=== PATIENT | female | born 1945 | race Caucasian/White ===

== ENCOUNTER → 2016-09-04 | Outpatient (CLI) | payer MEDICARE ==
[2016-09-04 10:16] LABS: Ionized Calcium 5.8 mg/dL (4.5-5.3)
[2016-09-04 10:36] LABS: ALT 23 U/L (9-52); AST 21 U/L (14-36); Alkaline Phosphatase 47 U/L (38-126); Anion Gap 9 mmol/L; Blood Urea Nitrogen 14 mg/dL (7-17); Calcium 10.2 mg/dL (8.4-10.2); Carbon Dioxide 27 mmol/L (22-30); Chloride 104 mmol/L (98-107); Glucose 88 mg/dL (74-99); Non-African American GFR(MDRD) >60 (>60 ml/min/1.73 sqM); Potassium 4.7 mmol/L (3.5-5.1); Sodium 140 mmol/L (137-145); Total Bilirubin 0.5 mg/dL (0.2-1.3)
== END | disposition home or self-care (01) ==
LOC: LABWHC1 09:25
PROVIDERS: ATTEND Internal Medicine Endocrinology, Diabetes & Metabolism
DX: E21.0 Primary hyperparathyroidism (principal); E55.9 Vitamin D deficiency, unspecified; E89.0 Postprocedural hypothyroidism
CPT/HCPCS: 36415; 80053; 82306; 82330; 83970; 84439; 84443

== ENCOUNTER → 2017-08-07 | Outpatient (CLI) | payer MEDICARE ==
[2017-08-07 11:04] LABS: ALT 23 U/L (9-52); AST 23 U/L (14-36); Alkaline Phosphatase 49 U/L (38-126); Anion Gap 12 mmol/L; Blood Urea Nitrogen 14 mg/dL (7-17); Calcium 10.6 mg/dL (8.4-10.2); Carbon Dioxide 28 mmol/L (22-30); Chloride 103 mmol/L (98-107); Cholesterol 157 mg/dL (<200); Glucose 90 mg/dL (74-99); HDL Cholesterol 50 mg/dL (40-60); LDL Cholesterol,Calculated 90 mg/dL (0-99); Potassium 5.2 mmol/L (3.5-5.1); Sodium 143 mmol/L (137-145); Total Bilirubin 0.4 mg/dL (0.2-1.3); Total Protein 6.3 g/dL (6.3-8.2); Triglycerides 86 mg/dL (<150)
[2017-08-07 11:20] LABS: T4, Free (Free Thyroxine) 1.65 ng/dL (0.78-2.19)
== END | disposition home or self-care (01) ==
LOC: LABWHC1 09:47
PROVIDERS: ATTEND Internal Medicine Endocrinology, Diabetes & Metabolism
DX: E89.0 Postprocedural hypothyroidism (principal); E21.0 Primary hyperparathyroidism
CPT/HCPCS: 36415; 80053; 80061; 84439; 84443

== ENCOUNTER → 2017-10-08 | Outpatient (CLI) | payer MEDICARE ==
[2017-10-08 10:24] LABS: Anion Gap 8 mmol/L; Blood Urea Nitrogen 11 mg/dL (7-17); Calcium 10.3 mg/dL (8.4-10.2); Carbon Dioxide 28 mmol/L (22-30); Chloride 104 mmol/L (98-107); Glucose 92 mg/dL (74-99); Magnesium 1.9 mg/dL (1.6-2.3); Phosphorus 3.7 mg/dL (2.5-4.5); Potassium 5.1 mmol/L (3.5-5.1); Sodium 140 mmol/L (137-145)
[2017-10-08 10:41] LABS: T4, Free (Free Thyroxine) 1.48 ng/dL (0.78-2.19)
[2017-10-08 11:02] LABS: Ionized Calcium 5.6 mg/dL (4.5-5.3)
[2017-10-08 16:30] LABS: Vitamin D 25 Hydroxy 110.5 ng/mL (30.0-100.0)
[2017-10-08 17:05] LABS: Parathyroid Hormone Intact 85.3 pg/mL (14.0-72.0)
== END | disposition home or self-care (01) ==
LOC: LABWHC1 09:00
PROVIDERS: ATTEND Internal Medicine Endocrinology, Diabetes & Metabolism
DX: E78.5 Hyperlipidemia, unspecified (principal); E89.0 Postprocedural hypothyroidism; E55.9 Vitamin D deficiency, unspecified; E21.0 Primary hyperparathyroidism
CPT/HCPCS: 36415; 80048; 82306; 82330; 82523; 83735; 83970; 84100; 84439; 84443

== ENCOUNTER → 2017-11-06 | Outpatient (CLI) | payer MEDICARE ==
--- NOTE | 2017-11-06 09:02 | US ---
EXAMINATION TYPE: US abdomen complete DATE OF EXAM: 11/06/2017 COMPARISON: NONE CLINICAL HISTORY: R10.0 severe abdominal pain. abd pain after eating, h/o thyroid ca and breast ca x 2 EXAM MEASUREMENTS: Liver Length: 11.9 cm Gallbladder Wall: 0.2 cm CBD: 0.3 cm Spleen: 9.1 cm Right Kidney: 10.3 x 4.1 x 4.1 cm Left Kidney: 9.5 x 3.9 x 4.2 cm Pancreas: wnl Liver: multiple cysts seen, largest = 3.4cm Gallbladder: wnl Evidence for sonographic Keenan's sign: no CBD: wnl Spleen: wnl Right Kidney: wnl Left Kidney: wnl Upper IVC: wnl Abd Aorta: wnl incidental finding of right sided pleural effusion The liver is homogenous. There are few thin-walled cysts some of lobulation and thin septation on im ages saved throughout the liver. The intrahepatic portion of the IVC and proximal abdominal aorta are within normal limits. There is no evidence of cholelithiasis. Common bile duct is unremarkable. T he visualized portions of the pancreas are homogenous. The spleen is unremarkable. Kidneys are symm etric and free of hydronephrosis. No renal lesions are seen. IMPRESSION: Note is made of small to tiny right pleural effusion which may warrant further clinical w orkup. No suspicious finding seen to account for patient's symptoms of severe pain after eating.
== END | disposition home or self-care (01) ==
LOC: RADUSWWP 06:51
PROVIDERS: ATTEND Internal Medicine Geriatric Medicine
DX: R10.0 Acute abdomen (principal)
CPT/HCPCS: 76700

== ENCOUNTER → 2017-11-18 | Outpatient (CLI) | payer MEDICARE ==
--- NOTE | 2017-11-18 10:02 | XR ---
EXAMINATION TYPE: XR chest 2V DATE OF EXAM: 11/18/2017 COMPARISON: 01/01/2016 TECHNIQUE: PA and lateral views submitted. HISTORY: Shortness of breath FINDINGS: There is a small right-sided pleural effusion and basilar consolidation. Left lung clear. There is a 6 mm nodule left lower lobe. No pneumothorax. Arthropathy shoulders. IMPRESSION: 1. Small right pleural effusion and basilar consolidation. 2. 6 mm nodule left lower lobe.
== END | disposition home or self-care (01) ==
LOC: RADXRMAIN 09:41
PROVIDERS: ATTEND Internal Medicine
DX: J90 Pleural effusion, not elsewhere classified (principal); R91.8 Other nonspecific abnormal finding of lung field; J18.1 Lobar pneumonia, unspecified organism
CPT/HCPCS: 71046

== ENCOUNTER → 2017-12-14 | Outpatient (CLI) | payer MEDICARE ==
--- NOTE | 2017-12-14 11:33 | FL ---
ESOPHOGRAM. HISTORY: Dysphagia Esophagram was performed per the air contrast technique. The patient swallowed barium and effervesce nt crystals without difficulty or delay. Esophageal peristalsis and motility appear to be within normal limits. There is no evidence for filling defect, mass or diverticulum. No hiatal hernia seen. Examination was subsequently terminated given aspiration of thick liquid barium. Modified barium swal low is recommended. IMPRESSION: 1. Aspiration. Modified barium swallow recommended. 2. Visualized esophagus appears grossly unremarkable.
== END | disposition home or self-care (01) ==
LOC: RADFLWHC 10:25
PROVIDERS: ATTEND Internal Medicine Geriatric Medicine
DX: R13.10 Dysphagia, unspecified (principal)
CPT/HCPCS: 74220

== ENCOUNTER → 2017-12-29 | Outpatient (CLI) | payer MEDICARE ==
--- NOTE | 2017-12-29 12:14 | FL ---
EXAMINATION TYPE: FL barium swallow w video DATE OF EXAM: 12/29/2017 MODIFIED SWALLOW / DEGLUTITION STUDY CLINICAL HISTORY: Aspiration during esophagram, abnormal esophagram TECHNIQUE: Deglutition study is performed utilizing thin liquid barium, honey and nectar thick liqui d barium, barium thick applesauce, and barium coated cracker. A total of 1.32 minutes of fluoroscopic time was utilized during procedure. 0 spot images are saved to PACS. COMPARISON: Esophagram December 14, 2017. FINDINGS: The oral and pharyngeal phases show satisfactory initiation and propagation with all modali ties tested. Normal mastication is seen with solid modalities tested. There is no evidence of penet ration or aspiration with any modality tested. No significant pharyngeal residue was appreciated. IMPRESSION: No penetration or aspiration observed on today's study. Please refer to speech therapist notes for further details if necessary.
== END | disposition home or self-care (01) ==
LOC: RADFLMAIN 11:06
PROVIDERS: ATTEND Internal Medicine Geriatric Medicine
DX: R13.10 Dysphagia, unspecified (principal)
CPT/HCPCS: 74230

== ENCOUNTER → 2018-02-08 | Outpatient (CLI) | payer MEDICARE ==
--- NOTE | 2018-02-08 10:05 | XR ---
EXAMINATION TYPE: XR chest 2V DATE OF EXAM: 02/08/2018 COMPARISON: 11/18/2017 TECHNIQUE: PA and lateral views submitted. HISTORY: Pneumonia FINDINGS: Right-sided consolidation and pleural effusion stable. No pneumothorax. Heart size stable. Arthropath y of the shoulders. IMPRESSION: 1. Stable right-sided lower lobe infiltrate and small effusion.
[2018-02-08 12:08] LABS: ALT 29 U/L (9-52); AST 35 U/L (14-36); Albumin 3.6 g/dL (3.5-5.0); Alkaline Phosphatase 49 U/L (38-126); Anion Gap 5 mmol/L; Blood Urea Nitrogen 15 mg/dL (7-17); Calcium 10.3 mg/dL (8.4-10.2); Carbon Dioxide 27 mmol/L (22-30); Chloride 106 mmol/L (98-107); Cholesterol 148 mg/dL (<200); Glucose 87 mg/dL (74-99); HDL Cholesterol 47 mg/dL (40-60); LDL Cholesterol,Calculated 87 mg/dL (0-99); Sodium 138 mmol/L (137-145); Total Bilirubin 0.5 mg/dL (0.2-1.3); Total Protein 6.2 g/dL (6.3-8.2); Triglycerides 68 mg/dL (<150)
[2018-02-08 12:11] LABS: Basophils # (A) 0.1 k/uL (0-0.2); Basophils % (A) 1 %; Eosinophils # (A) 0.1 k/uL (0-0.7); Eosinophils % (A) 2 %; HCT 43.2 % (34.0-46.0); HGB 13.1 gm/dL (11.4-16.0); Lymphocytes # (A) 0.9 k/uL (1.0-4.8); Lymphocytes % (A) 22 %; MCH 28.7 pg (25.0-35.0); MCHC 30.2 g/dL (31.0-37.0); Mean Platelet Volume 6.7; Monocytes # (A) 0.2 k/uL (0-1.0); Monocytes % (A) 6 %; Neutrophils # (A) 2.9 k/uL (1.3-7.7); Neutrophils % (A) 67 %; Platelet Count 311 k/uL (150-450); RBC 4.55 m/uL (3.80-5.40); RDW 13.1 % (11.5-15.5); WBC 4.2 k/uL (3.8-10.6)
[2018-02-08 12:21] LABS: T4, Free (Free Thyroxine) 1.45 ng/dL (0.78-2.19)
== END | disposition home or self-care (01) ==
LOC: RADXRMAIN 09:36
PROVIDERS: ATTEND Internal Medicine Geriatric Medicine
DX: J90 Pleural effusion, not elsewhere classified (principal); R91.8 Other nonspecific abnormal finding of lung field; E78.00 Pure hypercholesterolemia, unspecified; E03.9 Hypothyroidism, unspecified; K21.9 Gastro-esophageal reflux disease without esophagitis; R73.09 Other abnormal glucose
CPT/HCPCS: 71046; 80053; 80061; 83036; 84439; 84443; 85025

== ENCOUNTER → 2018-02-23 | Outpatient (CLI) | payer MEDICARE ==
[2018-02-23 16:10] LABS: Blood Urea Nitrogen 13 mg/dL (7-17)
--- NOTE | 2018-02-24 09:13 | CT ---
EXAMINATION TYPE: CT chest w con DATE OF EXAM: 02/24/2018 COMPARISON: Chest x-ray February 08, 2018 HISTORY: c/o chest tightness, cough, pneumonia. hx of breast ca CT DLP: 164.6 mGycm. Automated Exposure Control for Dose Reduction was Utilized. TECHNIQUE: CT scan of the thorax is performed following with IV Contrast, patient injected with 100 mL of Isovue 300. FINDINGS: LUNGS: There is moderate-sized right pleural effusion or fluid collection that does not completely la lalo dependently with extension all the way to right lung apex. There is associated compressive atelec tasis in the right lung base with more ill-defined masslike consolidation centrally radiating from th e right hilum surrounding distal right mainstem bronchus and origin of right upper lobe bronchus. The re is right-sided volume loss with tracheal and mediastinal shift. There is hyperexpanded left lung with reticulation and fibrosis in the left lung base. There is trace left pleural effusion or focal thickening axial image 45 that does not completely layer dependently. There are 2 left lower lobe posterior nodule measuring 5 mm axial image 39 and 4 mm axial image 37. A few smaller micronodules are noted in the superior lingula axial image 28 measuring up to 3 mm in s ize. There is more suspicious spiculated 10 x 9 mm nodule lateral left upper lobe axial image 13 MEDIASTINUM: There are prominent but subcentimeter anterior superior mediastinal, prevascular, and pa ratracheal lymph nodes. There are borderline enlarged left hilar lymph nodes axial image 28 for refer ence measuring 13 x 9 mm. There is suspicious prevascular lymph node near origin of left pulmonary ar dwain measuring 18 x 12 mm axial image 22. There is borderline subcarinal lymph node measuring 19 x 10 mm axial image 26 Small to moderate-sized pericardial effusion is seen most prominent along inferior margin measuring up to 18 mm in thickness sagittal image 53. No cardiomegaly is identified OTHER: Right breast implant is noted. Lobulated low dense right hepatic lobe 2.4 cm lesion axial imag e 56 likely corresponds to lobulated and septated cyst on ultrasound November 06, 2017. Mild to moderate multilevel spurring in the thoracic spine is seen. IMPRESSION: There are concerning findings in which neoplasm needs to BE excluded. Moderate size nonsi mple right pleural fluid collection is noted. There is suspicious masslike consolidation in the right hilar region surrounding bronchi. There are borderline enlarged thoracic lymph nodes and nonspecific left lung nodules. Consider PET/CT evaluation. Consider imaging guided right-sided thoracentesis for diagnostic purposes. Recurrent metastatic neoplasm needs to be excluded given patient history of jaymie ast cancer. Cannot exclude persistent acute pneumonia on background treatment change. Correlate clini merna.
== END | disposition home or self-care (01) ==
LOC: RADCTMAIN 15:19
PROVIDERS: ATTEND Internal Medicine Hematology & Oncology
DX: J94.8 Other specified pleural conditions (principal); R59.0 Localized enlarged lymph nodes; R91.8 Other nonspecific abnormal finding of lung field; C50.111 Malignant neoplasm of central portion of right female breast
CPT/HCPCS: 82565; 84520; 71260; 36415; Q9967

== ENCOUNTER → 2018-03-13 | Outpatient (CLI) | payer MEDICARE ==
--- NOTE | 2018-03-13 17:30 | PE ---
EXAMINATION TYPE: PET CT fusion skull to thigh DATE OF EXAM: 03/13/2018 COMPARISON: Chest CT February 23, 2018 HISTORY: History of breast cancer treated with bilateral mastectomy 2000 with chemotherapy ended 2007 per patient. Recent abnormal CT. TECHNIQUE: Following the intravenous administration of 12.578 mCi of F-18 FDG, whole body images are performed from the skull base to the midthigh. Images are reviewed on the computer in the coronal, axial, and sagittal planes. Reconstructed rotating images are created on independent workstation and reviewed on the computer. A noncontrast CT is performed in conjunction with the PET scan. SCAN: Subsequent Scan FINDINGS: SKULL BASE AND NECK: There are abnormal hypermetabolic left subcentimeter supraclavicular lymph node s seen near axial image 47. For reference lymph node adjacent to small size left thyroid lobe measure s 8 x 7 mm axial image 47 with max SUV of 3.41. CHEST, MEDIASTINUM, AND HILAR REGION: There is persistent 7 mm spiculated nodule or nodular consolida tion left upper lobe axial image 57 without abnormal hypermetabolic uptake. There is stable 5 mm subp leural nodule left lower lobe axial image 83 without abnormal hypermetabolic uptake. There is moderate to large size right pleural effusion increased in size from recent CT. There is ret iculonodular consolidation in the mid to right lower lung most prominent near fusion where there is s ome hypermetabolic uptake, max SUV is 6.03 axial image 91 where there is slightly more rounded nodula r consolidation seen. There is additional left basilar atelectasis and/or Limited consolidation. There are high medial left axillary hypermetabolic lymph nodes axial image 58 with max SUV 4.75, more lateral lymph node measures 1.3 x 0.9 cm. There is close proximity to subclavian vessels. There are enlarged anterior superior mediastinal hypermetabolic lymph nodes, there are additional hyp ermetabolic bilateral hilar and mediastinal lymph nodes. Max SUV left hilar region is 7.1. Max SUV fofana bcarinal level is 7.44. ABDOMEN AND PELVIS: No suspicious hypermetabolic uptake is present. Diffuse uptake throughout bowel a nd bladder is present. OSSEOUS STRUCTURES: No suspicious hypermetabolic uptake is clearly seen. Focal increased uptake poste rior L4-L5 level axial image 162 is of uncertain etiology without corresponding CT abnormality clearl y identified. OTHER CT: Right breast implant is redemonstrated. Surgical clips right axillary region are again seen. There is small pericardial effusion inferiorly redemonstrated. Coronary artery calcification is seen which is noted marked for coronary artery disease. Lobulated otherwise thin-walled simple cyst right hepatic lobe axial image 121 is redemonstrated. Sma ller cyst inferiorly axial image 149 is noted. Scattered pelvic phleboliths are seen. There is multilevel spurring in the spine identified. There is multilevel disc space narrowing in the lumbar spine seen. Multilevel facet arthropathy in the lumbar spine is noted. IMPRESSION: Suspicious thoracic and left-sided supraclavicular adenopathy worrisome for neoplasm. Con senior ui developer bronchoscopy for tissue sampling.
== END | disposition home or self-care (01) ==
LOC: RADPETMAIN 14:10
PROVIDERS: ATTEND Internal Medicine Hematology & Oncology
DX: C50.111 Malignant neoplasm of central portion of right female breast (principal)
CPT/HCPCS: 78815; A9552

== ENCOUNTER 2018-03-26 12:02 | Day surgery (SDC) | payer MEDICARE ==
[~2018-03-26 12:02] MED LIST: ALPRAZolam 0.25 MG TAB PO ONE
[2018-03-26 12:29] VITALS: TEMP 97.9
[2018-03-26 14:30] VITALS: BP 119/85; PULSE 87; RESP 16
--- NOTE | 2018-03-26 14:41 | US ---
ULTRASOUND GUIDED CORE BIOPSY LEFT NECK LYMPH NODE SUPRACLAVICULAR REGION: CLINICAL HISTORY: Abnormal PET scan FINDINGS: The procedure was explained to the patient. The risks, complications, benefits and alternatives were discussed and any questions were answered. Informed consent was obtained. Patient was placed supin e on the ultrasound table and prepped and draped in the usual sterile fashion. Utilizing a 18-gauge core biopsy needle, five passes were made into the left supraclavicular lymph node. Patient was stable throughout the procedure. Pathology is pending. All elements of maximal barrier and sterile technique were utilized. IMPRESSION: 1. Successful ultrasound guided core biopsy left clavicular lymph node.
== END 2018-03-26 13:50 | disposition home or self-care (01) ==
LOC: RADPROMAIN 12:02
PROVIDERS: ATTEND Internal Medicine Hematology & Oncology
DX: C77.0 Secondary and unspecified malignant neoplasm of lymph nodes of head, face and neck (principal); Z85.3 Personal history of malignant neoplasm of breast; Z85.828 Personal history of other malignant neoplasm of skin
CPT/HCPCS: 38505; 76942; 88305; 88341; 88342

== ENCOUNTER → 2018-04-15 | Outpatient (CLI) | payer MEDICARE ==
--- NOTE | 2018-04-15 20:17 | ECHOF ---
Referral Reason:Z01.818 PRE-CHEMO MEASUREMENTS -------- HEIGHT: 157.5 cm WEIGHT: 53.5 kg BP: 130/76 IVSd: 0.9 cm (0.6 - 1.1) LVIDd: 3.9 cm (3.9 - 5.3) LVPWd: 0.9 cm (0.6 - 1.1) IVSs: 1.2 cm LVIDs: 1.9 cm LVPWs: 1.5 cm LAESV Index (A-L): 18.87 ml/m Ao Diam: 2.1 cm (2.0 - 3.7) AV Cusp: 1.5 cm (1.5 - 2.6) LA Diam: 3.2 cm (2.7 - 3.8) MV EXCURSION: 12.755 mm (> 18.000) MV EF SLOPE: 76 mm/s (70 - 150) EPSS: 0.1 cm MV E Viral: 0.74 m/s MV DecT: 210 ms MV A Viral: 0.87 m/s MV E/A Ratio: 0.85 RAP: 5.00 mmHg RVSP: 46.04 mmHg FINDINGS -------- Sinus rhythm. This was a technically good study. The left ventricular size is normal. Left ventricular wall thickness is normal. Overall left vent ricular systolic function is normal with, an EF between 55 - 60 %. The right ventricle is normal in size and function. The left atrium is normal in size. The right atrium is normal in size. The aortic valve is trileaflet and appears structurally normal. The mitral valve leaflets are mildly thickened. Mild mitral annular calcification present. Mild m itral regurgitation is present. Severe tricuspid regurgitation present. There is mild to moderate pulmonary hypertension. The rig ht ventricular systolic pressure, as measured by Doppler, is 46.04mmHg. Pulmonic valve appears structurally normal. The aortic root size is normal. Normal inferior vena cava with normal inspiratory collapse consistent with estimated right atrial pre ssure of 5 mmHg. There is a moderate pericardial effusion is located near the right ventricle. Large Pleural Effusio n. CONCLUSIONS -------- 1. Sinus rhythm. 2. This was a technically good study. 3. The left ventricular size is normal. 4. Left ventricular wall thickness is normal. 5. Overall left ventricular systolic function is normal with, an EF between 55 - 60 %. 6. The right ventricle is normal in size and function. 7. The left atrium is normal in size. 8. The right atrium is normal in size. 9. The aortic valve is trileaflet and appears structurally normal. 10. The mitral valve leaflets are mildly thickened. 11. Mild mitral annular calcification present. 12. Mild mitral regurgitation is present. 13. Severe tricuspid regurgitation present. 14. There is mild to moderate pulmonary hypertension. 15. The right ventricular systolic pressure, as measured by Doppler, is 46.04mmHg. 16. Pulmonic valve appears structurally normal. 17. The aortic root size is normal. 18. Normal inferior vena cava with normal inspiratory collapse consistent with estimated right atrial pressure of 5 mmHg. 19. There is a moderate pericardial effusion is located near the right ventricle. 20. Large Pleural Effusion. TUBE MACHINE OPERATOR: Fauzia Arroyo RDCS
== END | disposition home or self-care (01) ==
LOC: RADECHMAIN 10:28
PROVIDERS: ATTEND Internal Medicine Hematology & Oncology
DX: Z01.818 Encounter for other preprocedural examination (principal); I08.1 Rheumatic disorders of both mitral and tricuspid valves; I27.20 Pulmonary hypertension, unspecified; I31.3 Pericardial effusion (noninflammatory); J90 Pleural effusion, not elsewhere classified
CPT/HCPCS: 93306

== ENCOUNTER 2018-04-26 12:18 | Day surgery (SDC) | payer MEDICARE ==
[2018-04-21 15:46] VITALS: BMI 21.5
[~2018-04-26 12:18] MED LIST changes: -ALPRAZolam 0.25 MG TAB PO ONE; +LACTATED RINGERS 1,000 ML IV SCH; +LIDOCAINE 1% 20 ML VIAL (10MG/ML) FOR IV START INTRADERMA PRN; +MIDAZOLAM (PF) 2 MG/2 ML VIAL IV PRN; +Pre Op ABX Message 1 EACH MISC MISCELLANE ONE; +fentaNYL (PF) 50 MCG/ML 2 ML AMP IV PRN
[2018-04-26 12:51] VITALS: RESP 16; TEMP 97.4
[2018-04-26] MEDS ORDERED: ceFAZolin IN SWFI 2 GM/20 ML SYRINGE IVP STA (13:39)
[2018-04-26] MEDS ORDERED: HEPARIN SODIUM,PORCINE 5,000 UNIT/ML 1 ML VIAL SQ ONE (13:41)
[2018-04-26] MEDS ORDERED: HEPARIN SODIUM,PORCINE 5,000 UNIT/ML 1 ML VIAL SQ STA (13:47)
--- NOTE | 2018-04-26 13:51 | P.GSHP ---
History of Present Illness H&P Date: 04/26/18 Chief Complaint: Recurrent breast cancer Patient today for Port-A-Cath placement. Patient had a recent diagnosis of recurrent breast cancer. She is starting chemotherapy dose on . She had a previous port on the left side in the past. Past Medical History Past Medical History: Cancer, Eye Disorder, GERD/Reflux, Pneumonia, Respiratory Disorder, Skin Disorder, Thyroid Disorder Additional Past Medical History / Comment(s): Hx of UTI's, psoriasis, hx thyroid nodules, hx Skin Cancer & Jame Breast Cancer (2000 left breast , 2007 right breast) with chemo. glaucoma., hx of h-pylori infection, Pneumonia November 2017., States SOB., states Chemo scheduled for 04/23/[address] Key. History of Any Multi-Drug Resistant Organisms: None Reported Past Surgical History: Breast Surgery, Hernia Repair, Joint Replacement, Tonsillectomy Additional Past Surgical History / Comment(s): partial thyroidectomy, jame mastectomy, rt breast implant, left breast reconstuction(trans flap), breast biopsies, cataract, skin cancer removed from left leg, jame eye laser surgery, fluid drained from right lung., right knee replacement, cervical node bx., Hx of infusa port and removal . Past Anesthesia/Blood Transfusion Reactions: Previous Problems w/ Anesthesia, Motion Sickness Additional Past Anesthesia/Blood Transfusion Reaction / Comment(s): Patient states cracked tooth and broken bridge with EGD (states they placed a "puck " in her mouth prior to procedure., States tooth very fragile. Past Psychological History: Anxiety Smoking Status: Never smoker Past Alcohol Use History: None Reported Past Drug Use History: None Reported - Past Family History Mother History Unknown: Yes Family Medical History: Coronary Artery Disease (CAD) Medications and Allergies Home Medications Medication Instructions Recorded Confirmed Type ALPRAZolam [Xanax XR] 0.5 mg PO BID PRN 01/03/16 04/26/18 History Ascorbic Acid [Vitamin C] 250 mg PO DAILY 01/03/16 04/26/18 History Brimonidine Tartrate [Alphagan P 1 drops BOTH EYES BID 01/03/16 04/26/18 History 0.15% Ophth Soln] Cholecalciferol [Vitamin D3] 5,000 unit PO DAILY 01/03/16 04/26/18 History Cyanocobalamin [Vitamin B-12] 1,000 mcg PO DAILY 01/03/16 04/26/18 History Levothyroxine Sodium [Synthroid] 75 mcg PO [id number] 01/03/16 04/21/18 History Multivitamins, Thera [Multivitamin 1 tab PO DAILY 01/03/16 04/21/18 History (formulary)] Simvastatin [Zocor] 10 mg PO HS 01/03/16 04/26/18 History Timolol 0.5% Ophth Soln [Timoptic 1 drop BOTH EYES BID 01/03/16 04/26/18 History 0.5% Ophth Soln] [id number] 1 each PO Q6HR PRN 03/24/18 04/21/18 History [Excedrin] Omeprazole [PriLOSEC] 20 mg PO [id number] 04/21/18 04/26/18 History Sennosides [Senna] 8.6 mg PO HS 04/21/18 04/26/18 History Allergies Allergy/AdvReac Type Severity Reaction Status Date / Time hydrocodone bitartrate Allergy Nausea,abdominal Verified 04/26/18 12:36 [From Vicodin] pain walnut Allergy CANKER Verified 04/26/18 12:36 SORES Surgical - Exam Vital Signs Temp Pulse Resp BP Pulse Ox 97.4 F L 81 16 140/78 95 04/26/18 12:37 04/26/18 12:37 04/26/18 12:37 04/26/18 12:37 04/26/18 12:37 Physical exam: General: Well-developed, well-nourished HEENT: Normocephalic, sclerae nonicteric Abdomen: Nontender, nondistended Extremities: No edema Neuro: Alert and oriented Assessment and Plan (1) Cancer of left breast Narrative/Plan: Will proceed with Port-A-Cath placement at this time. Risks of bleeding, infection, DVT, pneumothorax, catheter malfunction, anesthesia related complications were discussed. The patient understands and wishes to proceed. Current Visit: Yes Status: Acute Code(s): C50.912 - MALIGNANT NEOPLASM OF UNSPECIFIED SITE OF LEFT FEMALE BREAST SNOMED Code(s): 159445209
[2018-04-26] MEDS ORDERED: PROPOFOL 10 MG/ML 20 ML VIAL IV ONE (14:09)
[2018-04-26] MEDS ORDERED: fentaNYL (PF) 50 MCG/ML 2 ML AMP ONE (14:09)
[2018-04-26] MEDS ORDERED: MIDAZOLAM 2 MG/2 ML VIAL ONE (14:09)
[2018-04-26] MEDS ORDERED: ePHEDrine SULFATE/0.9% NACL/PF 50 MG/5 ML SYRINGE IV ONE (14:09)
[2018-04-26] MEDS ORDERED: LIDOCAINE (PF) 10 MG/ML 2 ML VIAL SQ ONE ×2 (14:10)
[2018-04-26] MEDS ORDERED: HEPARIN SODIUM,PORCINE 100 UNIT/ML 5 ML VIAL IV ONE ×2 (14:10)
[2018-04-26] MEDS ORDERED: NALOXONE 0.4 MG/ML 1 ML VIAL IV PRN (15:00)
--- NOTE | 2018-04-26 15:01 | P.OP ---
Date of Procedure: 04/26/18 Procedure(s) Performed: PREOPERATIVE DIAGNOSIS: Recurrent breast cancer POSTOPERATIVE DIAGNOSIS: Same PROCEDURE: Port-A-Cath placement SURGEON: Luis Antonio EBL: Minimal ANESTHESIA: Sedation COMPLICATIONS: None OPERATIVE PROCEDURE: Patient was brought and placed on the operative table in the supine position. The patient was sedated per anesthesia that time. The chest and neck were prepped and draped in usual sterile fashion. The ultrasound probe was used to identify the location of the right internal jugular vein. The skin was localized with lidocaine. The Seldinger needle was advanced into the IJ under ultrasound guidance. The wire was advanced through the needle under fluoroscopic guidance into the superior vena cava. A port pocket was created in the right infraclavicular location. The catheter was tunneled from the wire entrance site to the port pocket. The port was then connected to the catheter. The dilator introducer was threaded over the guidewire. The guidewire and dilator were then removed. The catheter was advanced through the introducer and introducer was then removed. The tip was seen to be in the right atrial junction. Port was flushed with both saline and a Hep-Lock solution. There was good flow both in and out of the port. The port was sutured in underlying tissues using 3-0 silk sutures. The subcutaneous tissues were reapproximated using 3-0 Vicryl sutures and the skin at both locations using 4-0 Monocryl sutures. Skin glue and sterile dressings then applied. DISPOSITION: Stable to recovery room
--- NOTE | 2018-04-26 15:41 | FL ---
Fluoroscopy HISTORY: Port-A-Cath insertion 6 seconds fluoroscopy time supplied to the referring clinician. 1 intraoperative C-arm images docume nt the procedure. See dictated report from general surgery.
--- NOTE | 2018-04-26 15:50 | XR ---
EXAMINATION TYPE: XR chest 1V confirm line [facility] DATE OF EXAM: 04/26/2018 COMPARISON: Prior chest x-ray 02/08/2018 HISTORY: Port-A-Cath insertion TECHNIQUE: Single frontal view of the chest is obtained. FINDINGS: Right-sided Port-A-Cath has been placed in the interval, right internal jugular vein appro ach the distal tip overlying the cavoatrial junction. No evident pneumothorax. There is blunting of t he right costophrenic angle, perihilar increased density and increased density along the right latera l chest margin. Patchy bibasilar density noted. IMPRESSION: No evident complication status post central venous catheter placement.
[2018-04-26 16:46] VITALS: BP 114/66; PULSE 70
== END 2018-04-26 16:45 | disposition home or self-care (01) ==
LOC: OR 12:18
PROVIDERS: ATTEND Surgery
DX: C50.111 Malignant neoplasm of central portion of right female breast (principal); C50.912 Malignant neoplasm of unspecified site of left female breast; C77.0 Secondary and unspecified malignant neoplasm of lymph nodes of head, face and neck; Z17.0 Estrogen receptor positive status [ER+]; Z92.21 Personal history of antineoplastic chemotherapy; Z85.3 Personal history of malignant neoplasm of breast; Z85.828 Personal history of other malignant neoplasm of skin; Z90.13 Acquired absence of bilateral breasts and nipples; Z98.82 Breast implant status; J90 Pleural effusion, not elsewhere classified; F41.1 Generalized anxiety disorder; M25.50 Pain in unspecified joint; E21.3 Hyperparathyroidism, unspecified; E89.0 Postprocedural hypothyroidism; L40.9 Psoriasis, unspecified; H40.9 Unspecified glaucoma; E78.5 Hyperlipidemia, unspecified; K21.9 Gastro-esophageal reflux disease without esophagitis; Z79.890 Hormone replacement therapy; Z79.899 Other long term (current) drug therapy; Z96.651 Presence of right artificial knee joint; Z87.01 Personal history of pneumonia (recurrent); Z87.440 Personal history of urinary (tract) infections; Z88.5 Allergy status to narcotic agent; Z91.018 Allergy to other foods
CPT/HCPCS: 77001; 36561; C1788; J2250; J2001; J1644; J1642; J3010; J2704; J0690

== ENCOUNTER 2018-05-19 10:48 | Inpatient (IN) | payer MEDICARE ==
--- NOTE | 2018-05-19 10:14 | XR ---
EXAMINATION TYPE: XR chest 2V DATE OF EXAM: 05/19/2018 COMPARISON: 04/26/2018 HISTORY: 72-year-old female history of breast cancer and pleural effusion TECHNIQUE: Frontal and lateral views FINDINGS: Right anterior chest wall injection port catheter tip at the lower SVC. Heart upper limits of normal in size. Diffuse interstitial opacities with consolidation left mid and lower lung and right base. Th ere is some fluid thickening the minor fissure and there is a small right pleural effusion. IMPRESSION: 1. Diffuse interstitial densities and patchy airspace disease in the mid and lower lungs, left greate r than right. Correlate for possible pulmonary edema. 2. Small right pleural effusion with adjacent atelectasis and/or consolidation. 3. As compared to 04/26/2018, airspace disease on the left is increased but the right-sided pleural eff usion has slightly decreased.
[2018-05-19] MEDS ORDERED: VANCOMYCIN IV PER PHARMACY 1 EACH MISC MISCELLANE PRN (11:15)
[2018-05-19] MEDS ORDERED: IPRATROPIUM-ALBUTEROL 3 ML NEB INHALATION STA (11:16)
[2018-05-19] MEDS ORDERED: CEFEPIME 2 GM in SODIUM CHLORIDE 0.9% 50 ML IVPB STA (11:17)
[2018-05-19] MEDS ORDERED: AZITHROMYCIN 500 MG in SODIUM CHLORIDE 0.9% 250 ML IVPB STA (11:20)
--- NOTE | 2018-05-19 11:44 | ED ---
General Adult HPI - General Chief complaint: Shortness of Breath Stated complaint: poss pneumonia Time Seen by Provider: 05/19/18 11:02 Source: patient, RN notes reviewed, old records reviewed Mode of arrival: wheelchair Limitations: no limitations - History of Present Illness Initial comments: 72-year-old female with metastatic breast cancer to the lung presenting with worsening cough and dyspnea. Patient's cough and dyspnea has been progressive over the past 4-5 days. Cough is productive of white sputum. Denies fever or chills. Most recent chemotherapy was one week ago. Denies pain or swelling in the lower extremities. Denies significant chest pain. Patient received an outpatient x-ray ordered by her oncologist, concern for fluid overload and infiltrate. - Related Data Home Medications Medication Instructions Recorded Confirmed Simvastatin [Zocor] 10 mg PO HS 01/03/16 05/19/18 Timolol 0.5% Ophth Soln [Timoptic 1 drop BOTH EYES BID 01/03/16 05/19/18 0.5% Ophth Soln] Omeprazole [PriLOSEC] 20 mg PO AC-BRKFST 04/21/18 05/19/18 ALPRAZolam [Xanax] 0.5 mg PO BID PRN 05/19/18 05/19/18 LORazepam [Ativan] 0.5 mg PO TID 05/19/18 05/19/18 Megestrol [Megace] 800 mg PO DAILY 05/19/18 05/19/18 Allergies Allergy/AdvReac Type Severity Reaction Status Date / Time hydrocodone bitartrate Allergy Nausea,abdominal Verified 05/19/18 11:48 [From Vicodin] pain walnut Allergy CANKER Verified 05/19/18 11:48 SORES Review of Systems ROS Statement: Those systems with pertinent positive or pertinent negative responses have been documented in the HPI. ROS Other: All systems not noted in ROS Statement are negative. Past Medical History Past Medical History: Cancer, Eye Disorder, GERD/Reflux, Pneumonia, Respiratory Disorder, Skin Disorder, Thyroid Disorder Additional Past Medical History / Comment(s): Hx of UTI's, psoriasis, hx thyroid nodules, hx Skin Cancer & Jame Breast Cancer (2000 left breast , 2007 right breast) with chemo. glaucoma., hx of h-pylori infection, Pneumonia November 2017., States SOB., states Chemo scheduled for 04/23/[address] Key. History of Any Multi-Drug Resistant Organisms: None Reported Past Surgical History: Breast Surgery, Hernia Repair, Joint Replacement, Tonsillectomy Additional Past Surgical History / Comment(s): partial thyroidectomy, jaem mastectomy, rt breast implant, left breast reconstuction(trans flap), breast biopsies, cataract, skin cancer removed from left leg, jame eye laser surgery, fluid drained from right lung., right knee replacement, cervical node bx., Hx of infusa port and removal . Past Anesthesia/Blood Transfusion Reactions: Previous Problems w/ Anesthesia, Motion Sickness Additional Past Anesthesia/Blood Transfusion Reaction / Comment(s): Patient states cracked tooth and broken bridge with EGD (states they placed a "puck " in her mouth prior to procedure., States tooth very fragile. Past Psychological History: Anxiety Smoking Status: Never smoker Past Alcohol Use History: None Reported Past Drug Use History: None Reported - Past Family History Mother History Unknown: Yes Family Medical History: Coronary Artery Disease (CAD) General Exam Limitations: no limitations General appearance: alert, in no apparent distress Head exam: Present: atraumatic, normocephalic Eye exam: Present: normal appearance, PERRL, EOMI ENT exam: Present: normal exam Neck exam: Present: normal inspection. Absent: tenderness, meningismus Respiratory exam: Present: respiratory distress (Mild respiratory distress), wheezes, rales (Rales predominantly left lung field) Cardiovascular Exam: Present: regular rate, normal rhythm GI/Abdominal exam: Present: soft. Absent: distended, tenderness, guarding Extremities exam: Present: normal inspection, normal capillary refill. Absent: pedal edema Neurological exam: Present: alert, oriented X3, CN II-XII intact. Absent: motor sensory deficit Psychiatric exam: Present: normal affect, normal mood Skin exam: Present: warm, dry, intact. Absent: cyanosis, diaphoretic Course Vital Signs 05/19/18 05/19/18 05/19/18 10:59 11:37 11:53 Temperature 97.9 F Pulse Rate 98 92 Respiratory 20 20 20 Rate Blood Pressure 117/78 O2 Sat by Pulse 88 L Oximetry 05/19/18 12:04 Temperature Pulse Rate 96 Respiratory 20 Rate Blood Pressure O2 Sat by Pulse Oximetry EKG Findings - EKG Comments: EKG Findings:: EKG: Normal sinus rhythm, rate of 97, ME interval 128, castration 84, QTC [address] segment changes Medical Decision Making - Medical Decision Making 72-year-old female with metastatic breast cancer on chemotherapy presenting with worsening cough and dyspnea. Palpation x-ray reviewed, there is reported concern for vascular congestion, this is predominantly in the left lung field with concern for infiltrate. Patient does have a normal white blood cell count , stable hemoglobin, normal CMP, troponin and BNP are negative. Influenza negative. She is started on antibiotics to cover healthcare associated pneumonia. Case is discussed with Dr. Mario, we will admit. - Lab Data Result diagrams: 05/19/18 11:43 05/19/18 11:43 Lab Results 05/19/18 05/19/18 05/19/18 Range/Units 11:25 11:43 11:43 WBC 7.8 (3.8-10.6) k/uL RBC 4.06 (3.80-5.40) m/uL Hgb 12.2 (11.4-16.0) gm/dL Hct 38.0 (34.0-46.0) % MCV 93.4 (80.0-100.0) fL MCH 30.0 (25.0-35.0) pg MCHC 32.1 (31.0-37.0) g/dL RDW 13.6 (11.5-15.5) % Plt Count 635 H (150-450) k/uL Neutrophils % 88 % Lymphocytes % 6 % Monocytes % 4 % Eosinophils % 1 % Basophils % 0 % Neutrophils # 6.9 (1.3-7.7) k/uL Lymphocytes # 0.5 L (1.0-4.8) k/uL Monocytes # 0.3 (0-1.0) k/uL Eosinophils # 0.1 (0-0.7) k/uL Basophils # 0.0 (0-0.2) k/uL PT (9.0-12.0) sec INR (<1.2) APTT (22.0-30.0) sec Sodium (137-145) mmol/L Potassium (3.5-5.1) mmol/L Chloride (98-107) mmol/L Carbon Dioxide (22-30) mmol/L Anion Gap mmol/L BUN (7-17) mg/dL Creatinine (0.52-1.04) mg/dL Est GFR (CKD-EPI)AfAm (>60 ml/min/1.73 sqM) Est GFR (CKD-EPI)NonAf (>60 ml/min/1.73 sqM) Glucose (74-99) mg/dL Plasma Lactic Acid Emeterio (0.7-2.0) mmol/L Calcium (8.4-10.2) mg/dL Magnesium (1.6-2.3) mg/dL Total Bilirubin (0.2-1.3) mg/dL AST (14-36) U/L ALT (9-52) U/L Alkaline Phosphatase (38-126) U/L Total Creatine Kinase <20 L (30-135) U/L CK-MB (CK-2) 0.6 (0.0-2.4) ng/mL CK-MB (CK-2) Rel Index Troponin I <0.012 (0.000-0.034) ng/mL NT-Pro-B Natriuret Pep pg/mL Total Protein (6.3-8.2) g/dL Albumin (3.5-5.0) g/dL Influenza Type A RNA Not Detected (Not Detectd) Influenza Type B (PCR) Not Detected (Not Detectd) 05/19/18 05/19/18 05/19/18 Range/Units 11:43 11:43 11:43 WBC (3.8-10.6) k/uL RBC (3.80-5.40) m/uL Hgb (11.4-16.0) gm/dL Hct (34.0-46.0) % MCV (80.0-100.0) fL MCH (25.0-35.0) pg MCHC (31.0-37.0) g/dL RDW (11.5-15.5) % Plt Count (150-450) k/uL Neutrophils % % Lymphocytes % % Monocytes % % Eosinophils % % Basophils % % Neutrophils # (1.3-7.7) k/uL Lymphocytes # (1.0-4.8) k/uL Monocytes # (0-1.0) k/uL Eosinophils # (0-0.7) k/uL Basophils # (0-0.2) k/uL PT (9.0-12.0) sec INR (<1.2) APTT (22.0-30.0) sec Sodium 131 L (137-145) mmol/L Potassium 4.2 (3.5-5.1) mmol/L Chloride 99 (98-107) mmol/L Carbon Dioxide 23 (22-30) mmol/L Anion Gap 9 mmol/L BUN 21 H (7-17) mg/dL Creatinine 0.48 L (0.52-1.04) mg/dL Est GFR (CKD-EPI)AfAm >90 (>60 ml/min/1.73 sqM) Est GFR (CKD-EPI)NonAf >90 (>60 ml/min/1.73 sqM) Glucose 109 H (74-99) mg/dL Plasma Lactic Acid Emeterio 1.2 (0.7-2.0) mmol/L Calcium 10.4 H (8.4-10.2) mg/dL Magnesium 1.7 (1.6-2.3) mg/dL Total Bilirubin 0.5 (0.2-1.3) mg/dL AST 42 H (14-36) U/L ALT 48 (9-52) U/L Alkaline Phosphatase 61 (38-126) U/L Total Creatine Kinase (30-135) U/L CK-MB (CK-2) (0.0-2.4) ng/mL CK-MB (CK-2) Rel Index Troponin I (0.000-0.034) ng/mL NT-Pro-B Natriuret Pep 222 pg/mL Total Protein 5.6 L (6.3-8.2) g/dL Albumin 3.0 L (3.5-5.0) g/dL Influenza Type A RNA (Not Detectd) Influenza Type B (PCR) (Not Detectd) 05/19/18 Range/Units 11:43 WBC (3.8-10.6) k/uL RBC (3.80-5.40) m/uL Hgb (11.4-16.0) gm/dL Hct (34.0-46.0) % MCV (80.0-100.0) fL MCH (25.0-35.0) pg MCHC (31.0-37.0) g/dL RDW (11.5-15.5) % Plt Count (150-450) k/uL Neutrophils % % Lymphocytes % % Monocytes % % Eosinophils % % Basophils % % Neutrophils # (1.3-7.7) k/uL Lymphocytes # (1.0-4.8) k/uL Monocytes # (0-1.0) k/uL Eosinophils # (0-0.7) k/uL Basophils # (0-0.2) k/uL PT 10.4 (9.0-12.0) sec INR 1.0 (<1.2) APTT 23.6 (22.0-30.0) sec Sodium (137-145) mmol/L Potassium (3.5-5.1) mmol/L Chloride (98-107) mmol/L Carbon Dioxide (22-30) mmol/L Anion Gap mmol/L BUN (7-17) mg/dL Creatinine (0.52-1.04) mg/dL Est GFR (CKD-EPI)AfAm (>60 ml/min/1.73 sqM) Est GFR (CKD-EPI)NonAf (>60 ml/min/1.73 sqM) Glucose (74-99) mg/dL Plasma Lactic Acid Emeterio (0.7-2.0) mmol/L Calcium (8.4-10.2) mg/dL Magnesium (1.6-2.3) mg/dL Total Bilirubin (0.2-1.3) mg/dL AST (14-36) U/L ALT (9-52) U/L Alkaline Phosphatase (38-126) U/L Total Creatine Kinase (30-135) U/L CK-MB (CK-2) (0.0-2.4) ng/mL CK-MB (CK-2) Rel Index Troponin I (0.000-0.034) ng/mL NT-Pro-B Natriuret Pep pg/mL Total Protein (6.3-8.2) g/dL Albumin (3.5-5.0) g/dL Influenza Type A RNA (Not Detectd) Influenza Type B (PCR) (Not Detectd) Disposition Clinical Impression: HCAP (healthcare-associated pneumonia) Disposition: ADMITTED IP TO THIS [facility] Condition: Stable Is patient prescribed a controlled substance at d/c from ED?: No Referrals: Tyler Mario MD [Primary Care Provider] - 1-2 days Time of Disposition: 13:14
[2018-05-19 12:17] LABS: Basophils % (A) 0 %; Eosinophils # (A) 0.1 k/uL (0-0.7); Eosinophils % (A) 1 %; HGB 12.2 gm/dL (11.4-16.0); Lymphocytes # (A) 0.5 k/uL (1.0-4.8); Lymphocytes % (A) 6 %; MCHC 32.1 g/dL (31.0-37.0); MCV 93.4 fL (80.0-100.0); Mean Platelet Volume 6.5; Monocytes # (A) 0.3 k/uL (0-1.0); Monocytes % (A) 4 %; Neutrophils # (A) 6.9 k/uL (1.3-7.7); Neutrophils % (A) 88 %; Platelet Count 635 k/uL (150-450); RBC 4.06 m/uL (3.80-5.40); RDW 13.6 % (11.5-15.5); WBC 7.8 k/uL (3.8-10.6)
[2018-05-19 12:20] LABS: Partial Thromboplastin Time 23.6 sec (22.0-30.0); Prothrombin Time 10.4 sec (9.0-12.0)
[2018-05-19 12:26] LABS: ALT 48 U/L (9-52); AST 42 U/L (14-36); Alkaline Phosphatase 61 U/L (38-126); Anion Gap 9 mmol/L; Blood Urea Nitrogen 21 mg/dL (7-17); Calcium 10.4 mg/dL (8.4-10.2); Carbon Dioxide 23 mmol/L (22-30); Chloride 99 mmol/L (98-107); Glucose 109 mg/dL (74-99); Magnesium 1.7 mg/dL (1.6-2.3); Potassium 4.2 mmol/L (3.5-5.1); Sodium 131 mmol/L (137-145); Total Bilirubin 0.5 mg/dL (0.2-1.3); Total Protein 5.6 g/dL (6.3-8.2)
[2018-05-19] MEDS ORDERED: VANCOMYCIN 1,250 MG in SODIUM CHLORIDE 0.9% 250 ML IVPB ONE (12:30)
[2018-05-19 12:34] LABS: Creatine Kinase <20 U/L (30-135)
[2018-05-19 12:47] LABS: Creatine Kinase MB 0.6 ng/mL (0.0-2.4); Troponin I <0.012 ng/mL (0.000-0.034)
[2018-05-19] MEDS ORDERED: ONDANSETRON 4 MG/2 ML VIAL IVP PRN (13:07)
[2018-05-19] MEDS ORDERED: NALOXONE 0.4 MG/ML 1 ML VIAL IV PRN (13:07)
[2018-05-19] MEDS: SODIUM CHLORIDE 0.9% 1,000 ML IV SCH (14:12)
[2018-05-19 15:19] VITALS: BMI 21.4
--- NOTE | 2018-05-19 17:12 | P.HPIM ---
History of Present Illness H&P Date: 05/19/18 Chief Complaint: Acute respiratory failure, lateral pneumonia, severe wheezes, lung metastas 72-year-old female one of my office patient with few medical problem who was breast-cancer survival for over 10 years who had left sided mastectomy in 2000 for breast cancer and had in 2007 right-sided breast cancer with mastectomy and chemotherapy. Patient developed in the summer of 2017 slight pneumonia in the right lung was treated and failure to treatment ended up going for CAT scan findings were consistent with mass in the right lung consistent with metastasis. Patient was back to see Dr. Key and started on chemotherapy for metastasis take breast cancer to the lung. Patient had chemotherapy last week she had central line port in the right subclavian area and she seen in the oncology clinic on regular basis. Patient called Dr. Key's office today concerned about worsening shortness of breath cough wheezes with severe hypoxia and cough productive.phlegm ended up been directly to go to [facility] where was seen and evaluated surprisingly her chest x-ray showed bilateral infiltrates worse on the left in the right side patient was diagnosed with pneumonia been immunosuppressive was started on vancomycin and cefepime and azithromycin, bronchodilator and smaller dose of Solu-Medrol will admit patient to the hospital with above problem. Review of Systems CONSTITUTIONAL: Well-developed no acute respiratory distress. Has lost her hair from chemotherapy EYES: No icterus sclerae, no conjunctivitis. EARS, NOSE, MOUTH, THROAT, and FACE: No sore throat, lymphadenopathy, carotid bruits or deformity. RESPIRATORY: Positive shortness of breath cough wheezes CARDIOVASCULAR: No CP, Palpitation, PND, Orthopnea, or angina. GASTROINTESTINAL: No Abd pain, positive nausea no vomiting positive diarrhea on and off, no constipation, No GI Bleed, no distention or masses. GENITOURINARY: Negative for Hematuria or UTI, no kidney stones. INTEGUMENT/BREAST: Negative for any muscular injury with mild osteoarthritis.. HEMATOLOGIC/LYMPHATIC: Negative for bleed or purpura. MUSCULOSKELTAL: Negative for Myalgia or arthralgia. NEURLOGICAL: No LOC, Sz or syncope, blurred vision dizziness or abnormality.. BEHAVIORAL/PSYCH: Negative. ENDOCRINE: Negative. Past Medical History Past Medical History: Cancer, Eye Disorder, GERD/Reflux, Pneumonia, Respiratory Disorder, Skin Disorder, Thyroid Disorder Additional Past Medical History / Comment(s): 2000 L breast cancer with mastectomy, 2007 R breast cancer with mastectomy and chemo, summer 2017 diagnosed with metastatic cancer to R lung with last chemo being one week ago. 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 History of Any Multi-Drug Resistant Organisms: None Reported Past Surgical History: Breast Surgery, Hernia Repair, Joint Replacement, Tonsillectomy Additional Past Surgical History / Comment(s): Bilateral breast biopsies, 2000 L breast mastectomy/reconstruction/transflap, 2007 R breast mastectomy with implant and replaced implant, cervical node biopsy, skin cancer removed from L leg, umbilical hernia repair, R total knee, partial thyroidectomy, R eye cataract removed with lens implants, bilateral laser eye surgery for glaucoma, port a caths, current R sided port, colonoscopy, EGD. Past Anesthesia/Blood Transfusion Reactions: Previous Problems w/ Anesthesia, Motion Sickness Additional Past Anesthesia/Blood Transfusion Reaction / Comment(s): Patient states cracked tooth and broken bridge with EGD (states they placed a "puck " in her mouth prior to procedure., States tooth very fragile. Smoking Status: Never smoker - Past Family History Mother History Unknown: Yes Family Medical History: Coronary Artery Disease (CAD) Additional Family Medical History / Comment(s): Mother had CABG at the age of 65yrs. Father Family Medical History: Renal Disease Additional Family Medical History / Comment(s): Father of kidney failure caused by a medication at the age of 80yrs. Medications and Allergies Home Medications Medication Instructions Recorded Confirmed Type Simvastatin [Zocor] 10 mg PO HS 01/03/16 05/19/18 History Timolol 0.5% Ophth Soln [Timoptic 1 drop BOTH EYES BID 01/03/16 05/19/18 History 0.5% Ophth Soln] Omeprazole [PriLOSEC] 20 mg PO AC-BRKFST 04/21/18 05/19/18 History ALPRAZolam [Xanax] 0.5 mg PO BID PRN 05/19/18 05/19/18 History LORazepam [Ativan] 0.5 mg PO TID 05/19/18 05/19/18 History Megestrol [Megace] 800 mg PO DAILY 05/19/18 05/19/18 History Allergies Allergy/AdvReac Type Severity Reaction Status Date / Time hydrocodone bitartrate Allergy Nausea,abdominal Verified 05/19/18 11:48 [From Vicodin] pain walnut Allergy CANKER Verified 05/19/18 11:48 SORES Physical Exam Vitals: Vital Signs Temp Pulse Resp BP Pulse Ox 05/19/18 12:04 96 20 05/19/18 11:53 92 20 05/19/18 11:37 20 05/19/18 10:59 97.9 F 98 20 117/78 88 L Intake and Output 05/19/18 05/19/18 05/19/18 06:59 14:59 22:59 Other: Weight 53.07 kg General Appearance: Alert, cooperative, no distress, appears stated age. Neck HEENT: Supple, no lymphadenopathy, no thyroid enlargement, no carotid bruits. Lungs: Decreased breath sound bilaterally with worsening rhonchi the left side positive crackles in the bases bilaterally worse on the left. Chest Wall: Decrease expansion with deep inspiration no tenderness and no deformity was found on exam, no costochondral pain or discomfort. Heart: Regular rate and rhythm, S1, S2 normal, no murmur, rub or gallop. Back: Symmetric, no curvature, ROM normal, no CVA tenderness. Abdomen: Soft, non-tender, bowel sounds active all four quadrants, no masses, no organomegaly. Extremities: Extremities normal, atraumatic, no cyanosis or edema. Pulses: 2+ and symmetric. Skin: Skin color, texture, tugor normal, no rashes or lesions. Neurologic: Alert oriented x3 cranial nerves II through XII intact, no motor deficit, no abnormal balance or gait. Results CBC & Chem 7: 05/19/18 11:43 05/19/18 11:43 Labs: Abnormal Lab Results - Last 24 Hours (Table) 05/19/18 05/19/18 05/19/18 Range/Units 11:43 11:43 11:43 Plt Count 635 H (150-450) k/uL Lymphocytes # 0.5 L (1.0-4.8) k/uL Sodium 131 L (137-145) mmol/L BUN 21 H (7-17) mg/dL Creatinine 0.48 L (0.52-1.04) mg/dL Glucose 109 H (74-99) mg/dL Calcium 10.4 H (8.4-10.2) mg/dL AST 42 H (14-36) U/L Total Creatine Kinase <20 L (30-135) U/L Total Protein 5.6 L (6.3-8.2) g/dL Albumin 3.0 L (3.5-5.0) g/dL Thrombosis Risk Factor Assmnt - DVT/VTE Prophylaxis DVT/VTE Prophylaxis: Pharmacologic Prophylaxis ordered, Mechanical Prophylaxis ordered - Choose All That Apply Any of the Below Risk Factors Present?: Yes Other Risk Factors: Yes Each Risk Factor Represents 2 Points: Age 61-74 years, Malignancy Other congenital or acquired thrombophilia - If yes, enter type in comment: No Thrombosis Risk Factor Assessment Total Risk Factor Score: 4 Thrombosis Risk Factor Assessment Level: Moderate Risk Assessment and Plan Plan: 1 severe dyspnea and shortness of breath with acute respiratory failure: Combination of reactive airway with possible obstructive pneumonitis and or gram -negative pneumonia especially with the immunosuppressive been on chemotherapy, patient will be treated aggressively for pneumonia. 2 bilateral pneumonia: Most likely gram-negative and with a current symptoms especially been on chemotherapy and immunosuppressive patient had cefepime along with vancomycin and azithromycin we'll consult oncology and consult pulmonary, sputum for Gram stain and culture along with blood culture will be done. 3 severe wheezes with reactive airway most likely caused by the severity of the pneumonia patient be started on Solu-Medrol along with albuterol/ipratropium no need for steroid nebulizer this point. 4 metastasis take breast-cancer: Has been going through chemotherapy with Dr. Key. 5 hyperlipidemia: Has been on Zocor 10 mg daily. 6 severe GERD: Patient is on omeprazole 20 mg daily. 7 Mild anxiety attacks: Has been on Xanax and lorazepam as needed. 8 DVT prophylaxis: Patient will be on heparin 5000 units subcutaneous twice a day. CODE STATUS: Full code. Admit patient to inpatient status for more than 2 nights.
[2018-05-19] MEDS: FAMOTIDINE 20 MG TAB PO SCH (17:55)
[2018-05-19] MEDS: methylPREDNISolone SOD SUCCI 40 MG/ML 1 ML VIAL IV SCH (17:55)
[2018-05-19] MEDS: ATORVASTATIN 10 MG TAB PO SCH (20:32)
[2018-05-19] MEDS: HEPARIN SODIUM,PORCINE 5,000 UNIT/ML 1 ML VIAL SQ SCH (20:32)
[2018-05-19] MEDS: TIMOLOL 0.5% OPHTH DROPS 5 ML BTL BOTH EYES SCH (20:32)
[2018-05-19] MEDS: BRIMONIDINE TARTRATE 0.2% DROPS 5 ML BTL BOTH EYES SCH (21:42)
[2018-05-19] MEDS: LORazepam 0.5 MG TAB PO SCH (21:43)
[2018-05-20] MEDS: methylPREDNISolone SOD SUCCI 40 MG/ML 1 ML VIAL IV SCH ×4 (00:19→23:57)
[2018-05-20] MEDS: VANCOMYCIN 1,000 MG in SODIUM CHLORIDE 0.9% 250 ML IVPB SCH ×3 (00:19→23:57)
[2018-05-20] MEDS: ZOLPIDEM 5 MG TAB PO PRN ×2 (00:19→23:57)
[2018-05-20] MEDS: HEPARIN SODIUM,PORCINE 5,000 UNIT/ML 1 ML VIAL SQ SCH ×2 (09:18→20:10)
[2018-05-20] MEDS: PANTOPRAZOLE 40 MG TABLET PO SCH (09:18)
[2018-05-20] MEDS: FAMOTIDINE 20 MG TAB PO SCH (09:18)
[2018-05-20] MEDS: LORazepam 0.5 MG TAB PO SCH ×3 (09:18→22:52)
[2018-05-20] MEDS: MEGESTROL 400 MG/10 ML CUP PO SCH (09:20)
[2018-05-20] MEDS: TIMOLOL 0.5% OPHTH DROPS 5 ML BTL BOTH EYES SCH ×2 (09:22→20:11)
[2018-05-20] MEDS: BRIMONIDINE TARTRATE 0.2% DROPS 5 ML BTL BOTH EYES SCH ×2 (09:22→20:10)
[2018-05-20 09:34] LABS: Basophils % (A) 0 %; Eosinophils % (A) 0 %; HCT 42.4 % (34.0-46.0); Lymphocytes # (A) 0.4 k/uL (1.0-4.8); Lymphocytes % (A) 5 %; MCH 29.4 pg (25.0-35.0); MCHC 30.7 g/dL (31.0-37.0); MCV 95.8 fL (80.0-100.0); Mean Platelet Volume 6.9; Monocytes # (A) 0.2 k/uL (0-1.0); Monocytes % (A) 3 %; Neutrophils # (A) 6.9 k/uL (1.3-7.7); Neutrophils % (A) 92 %; Platelet Count 585 k/uL (150-450); RBC 4.42 m/uL (3.80-5.40); RDW 13.4 % (11.5-15.5); WBC 7.5 k/uL (3.8-10.6)
[2018-05-20 09:55] LABS: ALT 49 U/L (9-52); AST 41 U/L (14-36); Alkaline Phosphatase 65 U/L (38-126); Anion Gap 10 mmol/L; Blood Urea Nitrogen 18 mg/dL (7-17); Calcium 10.4 mg/dL (8.4-10.2); Carbon Dioxide 22 mmol/L (22-30); Chloride 103 mmol/L (98-107); Glucose 140 mg/dL (74-99); Sodium 135 mmol/L (137-145); Total Bilirubin 0.5 mg/dL (0.2-1.3); Total Protein 5.8 g/dL (6.3-8.2)
--- NOTE | 2018-05-20 12:11 | P.PN ---
Subjective Progress Note Date: 05/20/18 72-year-old female one of my office patient with few medical problem who was breast-cancer survival for over 10 years who had left sided mastectomy in 2000 for breast cancer and had in 2007 right-sided breast cancer with mastectomy and chemotherapy. Patient developed in the summer of 2017 slight pneumonia in the right lung was treated and failure to treatment ended up going for CAT scan findings were consistent with mass in the right lung consistent with metastasis. Patient was back to see Dr. Key and started on chemotherapy for metastasis take breast cancer to the lung. Patient had chemotherapy last week she had central line port in the right subclavian area and she seen in the oncology clinic on regular basis. Patient called Dr. Key's office today concerned about worsening shortness of breath cough wheezes with severe hypoxia and cough productive.phlegm ended [facility] and evaluated surprisingly her chest x-ray showed bilateral infiltrates worse on the left in the right side patient was diagnosed with pneumonia been immunosuppressive was started on vancomycin and cefepime and azithromycin, bronchodilator and smaller dose of Solu-Medrol will admit patient to the hospital with above problem. 05/20: Last evening, patient had a drop in her O2 saturation 89% on 4 L. Apparently this happened while she was ambulating. The increased oxygen to 6 L and then finally to a Ventimask and nonrebreather at 15 L. At that point, O2 saturation came up to 95%. Patient is now on high flow nasal cannula at 15 L and pulse ox is 92-94%. She has been afebrile. Heart rate running in the 90s and low 100s. White count is 7.5, platelet count 585, sodium 135, BUN 18 creatinine 0.47. Patient is followed by Dr. Casillas. Patient is continued on IV vancomycin and IV Levaquin will be added. Review of Systems CONSTITUTIONAL: Well-developed mild acute respiratory distress. Has lost her hair from chemotherapy EYES: No icterus sclerae, no conjunctivitis. EARS, NOSE, MOUTH, THROAT, and FACE: No sore throat, lymphadenopathy, carotid bruits or deformity. RESPIRATORY: Positive shortness of breath cough wheezes CARDIOVASCULAR: No CP, Palpitation, PND, Orthopnea, or angina. GASTROINTESTINAL: No Abd pain, positive nausea no vomiting positive diarrhea on and off, no constipation, No GI Bleed, no distention or masses. GENITOURINARY: Negative for Hematuria or UTI, no kidney stones. INTEGUMENT/BREAST: Negative for any muscular injury with mild osteoarthritis.. HEMATOLOGIC/LYMPHATIC: Negative for bleed or purpura. MUSCULOSKELTAL: Negative for Myalgia or arthralgia. NEURLOGICAL: No LOC, Sz or syncope, blurred vision dizziness or abnormality.. BEHAVIORAL/PSYCH: Anxiety ENDOCRINE: Negative. Objective - Vital Signs Vital signs: Vital Signs Temp 97.4 F L 05/20/18 05:00 Pulse 94 05/20/18 05:00 Resp 15 05/20/18 06:19 BP 113/73 05/20/18 05:00 Pulse Ox 94 L 05/20/18 05:38 Intake & Output 05/19/18 05/20/18 05/20/18 18:59 06:59 18:59 Intake Total 480 Balance 480 Weight 53.07 kg Intake: Intake, IV Titration 240 Amount Sodium Chloride 0.9% 1, 240 000 ml @ 20 mls/hr IV . Q24H [facility] Rx#:[id number] Oral 240 Other: Voiding Method Toilet Toilet # Voids 2 - Exam General Appearance: Alert, cooperative, mild distress at rest, appears stated age. Neck HEENT: Supple, no lymphadenopathy, no thyroid enlargement, no carotid bruits. Lungs: Decreased breath sound bilaterally with worsening rhonchi the left side positive crackles in the bases bilaterally worse on the left. Chest Wall: Decrease expansion with deep inspiration no tenderness and no deformity was found on exam, no costochondral pain or discomfort. Heart: Regular rate and rhythm, S1, S2 normal, no murmur, rub or gallop. Back: Symmetric, no curvature, ROM normal, no CVA tenderness. Abdomen: Soft, non-tender, bowel sounds active all four quadrants, no masses, no organomegaly. Extremities: Extremities normal, atraumatic, no cyanosis or edema. Pulses: 2+ and symmetric. Skin: Skin color, texture, tugor normal, no rashes or lesions. Neurologic: Alert oriented x3 cranial nerves II through XII intact, no motor deficit, no abnormal balance or gait. - Labs CBC & Chem 7: 05/20/18 08:48 05/20/18 08:48 Labs: Abnormal Lab Results - Last 24 Hours (Table) 05/19/18 05/19/18 05/19/18 Range/Units 11:43 11:43 11:43 Plt Count 635 H (150-450) k/uL Lymphocytes # 0.5 L (1.0-4.8) k/uL Sodium 131 L (137-145) mmol/L BUN 21 H (7-17) mg/dL Creatinine 0.48 L (0.52-1.04) mg/dL Glucose 109 H (74-99) mg/dL Calcium 10.4 H (8.4-10.2) mg/dL AST 42 H (14-36) U/L Total Creatine Kinase <20 L (30-135) U/L Total Protein 5.6 L (6.3-8.2) g/dL Albumin 3.0 L (3.5-5.0) g/dL Assessment and Plan Plan: 1 acute hypoxic respiratory failure of reactive airway with possible obstructive pneumonitis and or gram-negative pneumonia especially with the immunosuppressive been on chemotherapy, patient will be treated aggressively for pneumonia. Patient is currently requiring 15 L high flow O2 by nasal cannula. 2 bilateral pneumonia, gram-negative inpatient on chemotherapy and immunosuppressive. Continue vancomycin and Levaquin will be added. Patient received a dose of cefepime and azithromycin in the ER. Consult with pulmonary medicine and oncology appreciated. 3 severe wheezes with reactive airway most likely caused by the severity of the pneumonia patient be started on Solu-Medrol along with albuterol/ipratropium no need for steroid nebulizer this point. 4 metastasis from breast cancer: Has been going through chemotherapy with Dr. Key. 5 hyperlipidemia: Has been on Zocor 10 mg daily. 6 severe GERD: Patient is on omeprazole 20 mg daily. 7 Mild anxiety attacks: Has been on Xanax and lorazepam as needed. 8 DVT prophylaxis: Patient will be on heparin 5000 units subcutaneous twice a day. CODE STATUS: Full code. Discharge plan: To be determined. PT and OT added. Impression and plan of care have been directed as dictated by the signing physician. Larissa Polanco nurse practitioner acting as scribe for signing physician.
[2018-05-20] MEDS: SODIUM CHLORIDE 0.9% 1,000 ML IV SCH (12:42)
[2018-05-20] MEDS ORDERED: LEVOFLOXACIN 750MG-D5W PMX 750 MG in DEXTROSE/WATER 1 150ML.BAG IVPB SCH (13:00)
[2018-05-20] MEDS: LEVOFLOXACIN 750MG-D5W PMX 750 MG in DEXTROSE/WATER 1 150ML.BAG IVPB SCH (15:40)
--- NOTE | 2018-05-20 18:44 | CONS ---
CONSULTATION PULMONARY/CRITICAL CARE CONSULTATION: DATE OF SERVICE: 05/20/2018 This is a very pleasant 72-year-old female with a history of breast cancer. She was diagnosed initially some 10 years ago. She underwent treatment at that time. More recently, she was discovered to have recurrent breast cancer. She apparently had a couple of lymph nodes in the left supraclavicular area that were biopsied via fine needle that came back for malignancy. It was consistent with a primary breast cancer. She also apparently has some lesions in the lung. More recently, over the last 4-6 months, and more significantly over the last 4-5 days, she has been noticing increasing shortness of breath. The shortness of breath is even at rest. It is worse on exertion. In addition, she has a nonproductive cough. If she does produce any phlegm, it is a small amount of clear white phlegm. There has been no fever or chills. No wheezing. The patient's most recent chemotherapy was about a week ago. She has had apparently 4 or 5 rounds of chemotherapy. Her primary doctor is Dr. Mario and her cancer doctor is Dr. Key. Anyway, the patient was admitted to the hospital for increasing shortness of breath. The diagnosis given to her was that of possible pneumonia. The other concern was that of fluid overload. She does have an interstitial pattern on her chest x-ray. Looking at it, you would think of interstitial edema or CHF. I do not believe it is that. Her BNP is normal. In addition, she apparently had her heart checked out and was told that her heart was fine. In addition, another possibility might be atypical pneumonia. I do not believe she has that, either. 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 This would present with significant hypoxemia, shortness of breath and an interstitial pattern on chest x-ray. HOME MEDICATIONS: Include: 1. Zocor. 2. Eye drops. 3. Prilosec. 4. Xanax. 5. Ativan. 6. Megace. ALLERGIES: Allergies include HYDROCODONE and WALNUTS. MEDICAL HISTORY: Includes: 1. Breast cancer. 2. Gastroesophageal reflux disease. 3. History of pneumonia. 4. UTIs. 5. Psoriasis. 6. Thyroid nodules. 7. Skin cancer. 8. Breast cancer in both breasts: 2000 on the left side, 2007 on the right. 9. Glaucoma. 10.H pylori infection. 11.Pneumonia in November 2017. SURGICAL HISTORY: Includes: 1. Hernia repair. 2. Joint replacement. 3. Tonsillectomy. 4. Partial thyroidectomy. 5. Bilateral mastectomy. 6. Right breast implant. 7. Left breast reconstruction. 8. Multiple breast biopsies. 9. Cataract surgery. 10.Skin cancer removal. 11.Laser eye surgery. 12.Thoracentesis. 13.Lymph node biopsy in the left supraclavicular space. 14.Right knee replacement. 15.Port placement and subsequent removal. SOCIAL HISTORY: Negative for tobacco, alcohol or illicit drug use. FAMILY HISTORY: Positive for CAD. REVIEW OF SYSTEMS: CONSTITUTIONAL: Weakness. NEUROLOGIC: Negative. HEENT: Negative. CARDIOVASCULAR: Negative. PULMONARY: Shortness of breath and cough, mostly nonproductive. GI: Negative. : Negative. RHEUMATOLOGIC: Negative. IMMUNOLOGIC: Negative. DERMATOLOGIC: Negative. PHYSICAL EXAMINATION: CURRENT VITAL SIGNS: Temperature is 98, heart rate 105, respiratory rate 20, blood pressure 133/68 with a mean of 89, and on high-flow cannula at 15 L her saturations are only 90% to 91%. When that is dropped, she profoundly desaturates. Appears quite tachypneic and dyspneic even with some mild conversational dyspnea. HEENT examination is grossly unremarkable. Nasal oxygen noted. NECK: Supple. Full range of motion. No adenopathy. Cardiovascular examination reveals regular rhythm and rate. She is mildly tachycardic. Heart rate 105 and regular. S1, S2 normal. No murmur noted. Lungs reveal some bilateral dry crackles. A few scattered rhonchi noted. There are no wheezes. Breath sounds are equal bilaterally. She is somewhat restricted in her breathing. ABDOMEN: Soft. Bowel sounds are heard. Extremities are intact. No cyanosis, clubbing or edema. Skin without rash. Neurologic examination is brief but nonfocal. LABS AND IMAGING: Microbiologic studies are negative. Labs are reviewed. White count 7.5, hemoglobin 13, hematocrit 42.4, platelet count 585,000. PT and INR normal. PTT normal. Sodium 135, potassium 5, chloride 103, CO2 of 22, anion gap 10. BUN and creatinine were 18 and 0.47. Her N-terminal proBNP was normal at 222. Troponin is negative. The rest of her labs look pretty good. Albumin 3. Influenza studies are negative. Chest x-ray was reviewed. It shows a diffuse interstitial pattern. I believe this relates to lymphangitic carcinomatosis rather than pulmonary edema/heart failure or atypical infection. The patient did have a chest CT scan in February 2018 that showed a moderate-sized non- simple right pleural fluid collection. There was a suspicious masslike consolidation in the right hilar region surrounding the bronchi. There were borderline enlarged thoracic lymph nodes and nonspecific left lung nodules. Other findings can be noted on the February 2018 CT scan. CURRENT MEDICATIONS: Current medications are reviewed. From the pulmonary standpoint, she is on Zithromax and cefepime. She is also on DuoNebs and Levaquin. She is also on Solu-Medrol 40 mg q.8. She is also on vancomycin. ASSESSMENT: 1. Progressive shortness of breath over many weeks and months now, more so in the last couple of days, with mostly dry nonproductive cough and an interstitial pattern on chest x-ray, suggestive of lymphangitic carcinomatosis rather than infection or pulmonary edema. 2. Recurrent breast cancer. 3. History of gastroesophageal reflux disease. 4. History of pneumonia. 5. Skin cancer. 6. Thyroid nodules. 7. History of psoriasis. 8. History of urinary tract infection. 9. Status post bilateral mastectomy. 10.Status post recent chemotherapy x4 rounds. PLAN: I will order a procalcitonin level. I do not suspect the patient is infected. My inclination would be to stop the steroids and the antibiotics at this point. Will allow the primary service to decide that. She is not really behaving like an infection, in my opinion. Prognosis is guarded. We will continue to follow. She likely will need oxygen on discharge. Additional recommendations and suggestions are forthcoming. MMODL / IJN: [id number] /
--- NOTE | 2018-05-20 19:21 | P.CONS ---
History of Present Illness - Reason for Consult Consult date: 05/20/18 Breast cancer Requesting physician: Ancelmo Hartmann - Chief Complaint MARY - History of Present Illness Mrs. Healy is a very pleasant female pt of Dr. Key who was diagnosed with right breast cancer June 2007 for which she had a mastectomy followed by adjuvant TCH with completion of one year of Herceptin June 2008, completed 5 years of AI March 2013. 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 She was treated for pneumonia in November 2017. CXR revealed RLL consolidation and small effusion, repeat CXR in January 2018 had similar findings. 02/24/18 CT chest revealed mass like consolidation in right hilum, moderate right pleural effusion, borderline enlarged mediastinal nodes and LLL lung nodules. 03/04/18 right thoracentesis was not diagnostic. U/S guided biopsy of left cervical node was positive for metastatic carcinoma , consistent with breast primary, ER+,ND negative,HER2/SMITHA 2+ by IHC, positive by FISH. 04/23/18 she started weekly taxol with herceptin/pejeta. She initially tolerated treatment well but when seen in office for f/u 05/19/18 she presented with 2 days progressive dyspnea, dry cough, mild diarrhea, wt loss, denied fever or chills, very tired, she was hypoxemic, he is on 15L high flow O2, unable to turn down as she becomes hypoxemic very quickly. No oral irritation, sore throat, chest pain, indigestion or heartburn, abdominal pain or cramping. Positive for activity intolerance, she cannot walk 15 feet without being short of breath, she denies hemoptysis. Review of Systems 14 point review of systems is negative except as stated in HPI Past Medical History Past Medical History: Cancer, Eye Disorder, GERD/Reflux, Pneumonia, Respiratory Disorder, Skin Disorder, Thyroid Disorder Additional Past Medical History / Comment(s): 2000 L breast cancer with mastectomy, 2007 R breast cancer with mastectomy and chemo, summer 2017 diagnosed with metastatic cancer to R lung with last chemo being one week ago. 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 History of Any Multi-Drug Resistant Organisms: None Reported Past Surgical History: Breast Surgery, Hernia Repair, Joint Replacement, Tonsillectomy Additional Past Surgical History / Comment(s): Bilateral breast biopsies, 2000 L breast mastectomy/reconstruction/transflap, 2007 R breast mastectomy with implant and replaced implant, cervical node biopsy, skin cancer removed from L leg, umbilical hernia repair, R total knee, partial thyroidectomy, R eye cataract removed with lens implants, bilateral laser eye surgery for glaucoma, port a caths, current R sided port, colonoscopy, EGD. Past Anesthesia/Blood Transfusion Reactions: Previous Problems w/ Anesthesia, Motion Sickness Additional Past Anesthesia/Blood Transfusion Reaction / Comm: Patient states cracked tooth and broken bridge with EGD (states they placed a "puck " in her mouth prior to procedure., States tooth very fragile. Smoking Status: Never smoker - Past Family History Mother History Unknown: Yes Family Medical History: Coronary Artery Disease (CAD) Additional Family Medical History / Comment(s): Mother had CABG at the age of 65yrs. Father Family Medical History: Renal Disease Additional Family Medical History / Comment(s): Father of kidney failure caused by a medication at the age of 80yrs. Medications and Allergies Home Medications Medication Instructions Recorded Confirmed Type Simvastatin [Zocor] 10 mg PO HS 01/03/16 05/19/18 History Timolol 0.5% Ophth Soln [Timoptic 1 drop BOTH EYES BID 01/03/16 05/19/18 History 0.5% Ophth Soln] Omeprazole [PriLOSEC] 20 mg PO AC-BRKFST 04/21/18 05/19/18 History ALPRAZolam [Xanax] 0.5 mg PO BID PRN 05/19/18 05/19/18 History LORazepam [Ativan] 0.5 mg PO TID 05/19/18 05/19/18 History Megestrol [Megace] 800 mg PO DAILY 05/19/18 05/19/18 History Allergies Allergy/AdvReac Type Severity Reaction Status Date / Time hydrocodone bitartrate Allergy Nausea,abdominal Verified 05/19/18 11:48 [From Vicodin] pain walnut Allergy CANKER Verified 05/19/18 11:48 SORES Physical Exam Vitals: Vital Signs Temp Pulse Resp BP Pulse Ox 05/20/18 16:00 100 20 05/20/18 12:37 98 F 105 H 20 133/68 91 L 05/20/18 08:52 92 L 05/20/18 08:00 100 20 05/20/18 06:19 15 05/20/18 05:38 18 94 L 05/20/18 05:30 19 91 L 05/20/18 05:20 23 89 L 05/20/18 05:19 24 92 L 05/20/18 05:10 25 H 86 L 05/20/18 05:05 75 L 05/20/18 05:00 97.4 F L 94 24 113/73 87 L 05/19/18 21:44 13 94 L 05/19/18 21:25 95 05/19/18 21:19 14 95 05/19/18 20:55 14 95 05/19/18 20:45 15 86 L 05/19/18 20:30 97.6 F 92 18 122/81 89 L Intake and Output 05/20/18 05/20/18 05/20/18 06:59 14:59 22:59 Intake Total 160 360 720 Balance 160 360 720 Intake: Intake, IV Titration 160 Amount Sodium Chloride 0.9% 1, 160 000 ml @ 20 mls/hr IV . Q24H [facility] Rx#:[id number] Oral 360 720 Other: Voiding Method Toilet Toilet Toilet # Voids 2 3 3 Weight 53.07 kg - Constitutional General appearance: average body habitus, cooperative, mild distress - EENT Eyes: anicteric sclerae, EOMI ENT: hearing grossly normal, normal oropharynx - Neck Neck: lymphadenopathy (barely palpable, in left supraclavicular area) - Respiratory Respiratory: bilateral: diminished, rhonchi - Cardiovascular Rhythm: regular Heart sounds: normal: S1, S2 Abnormal Heart Sounds: no systolic murmur, no diastolic murmur, no rub, no S3 Gallop, no S4 Gallop, no click, no other leg Peripheral Edema: bilateral: None - Gastrointestinal General gastrointestinal: no absent bowel sounds, no decreased bowel sounds, no distended, no hepatomegaly, no hyperactive bowel sounds, normal bowel sounds, no organomegaly, no rigid, no scaphoid, soft, no splenomegaly, no tenderness, no umbilical hernia, no ventral hernia - Neurologic Neurologic: CNII-XII intact - Musculoskeletal Musculoskeletal: generalized weakness - Psychiatric Psychiatric: A&O x's 3, appropriate affect, intact judgment & insight Results CBC & Chem 7: 05/20/18 08:48 05/20/18 08:48 Labs: Abnormal Lab Results - Last 24 Hours (Table) 05/20/18 05/20/18 Range/Units 08:48 08:48 MCHC 30.7 L (31.0-37.0) g/dL Plt Count 585 H (150-450) k/uL Lymphocytes # 0.4 L (1.0-4.8) k/uL Sodium 135 L (137-145) mmol/L BUN 18 H (7-17) mg/dL Creatinine 0.47 L (0.52-1.04) mg/dL Glucose 140 H (74-99) mg/dL Calcium 10.4 H (8.4-10.2) mg/dL AST 41 H (14-36) U/L Total Protein 5.8 L (6.3-8.2) g/dL Albumin 3.0 L (3.5-5.0) g/dL Microbiology - Last 24 Hours (Table) 05/19/18 11:43 Blood Culture - Preliminary Blood No Growth after 24 hours Chest x-ray: report reviewed Assessment and Plan (1) Metastatic disease Current Visit: Yes Status: Acute Priority: High Code(s): C79.9 - SECONDARY MALIGNANT NEOPLASM OF UNSPECIFIED SITE SNOMED Code(s): 443268910 (2) Cancer of left breast Current Visit: Yes Status: Chronic Priority: High Code(s): C50.912 - MALIGNANT NEOPLASM OF UNSPECIFIED SITE OF LEFT FEMALE BREAST SNOMED Code(s): 370268853 Plan: Patient has newly diagnosed metastatic disease to the lungs. Patient is status post her first cycle day 1 and 8 and 15 as well as day 1 of cycle 2 of Taxol, perjeta, Herceptin. When I saw patient this morning we discussed the abnormal findings on the chest x-ray. Patient was ordered antibiotics. I then discussed case with Pulmonary. There is concern for lymphangitic spread of disease. This information has been passed on to Dr. Key. Will request additional studies or procedures at his discretion. Pulmonary is providing patient with respiratory support and medications at this time. Patient will be followed up within the a.m.
[2018-05-20] MEDS: ATORVASTATIN 10 MG TAB PO SCH (20:10)
[2018-05-21] MEDS: ALPRAZolam 0.5 MG TAB PO PRN ×2 (04:47→18:13)
[2018-05-21] MEDS: BRIMONIDINE TARTRATE 0.2% DROPS 5 ML BTL BOTH EYES SCH ×2 (08:11→20:52)
[2018-05-21] MEDS: methylPREDNISolone SOD SUCCI 40 MG/ML 1 ML VIAL IV SCH ×3 (08:11→23:11)
[2018-05-21] MEDS: PANTOPRAZOLE 40 MG TABLET PO SCH (08:11)
[2018-05-21] MEDS: HEPARIN SODIUM,PORCINE 5,000 UNIT/ML 1 ML VIAL SQ SCH ×2 (08:12→20:52)
[2018-05-21] MEDS: LORazepam 0.5 MG TAB PO SCH ×3 (08:12→20:52)
[2018-05-21] MEDS: TIMOLOL 0.5% OPHTH DROPS 5 ML BTL BOTH EYES SCH ×2 (08:14→20:52)
[2018-05-21] MEDS: MEGESTROL 400 MG/10 ML CUP PO SCH ×2 (08:14→08:23)
[2018-05-21] MEDS ORDERED: VANCOMYCIN TROUGH DUE 1 EACH MISC MISCELLANE ONE (11:00)
[2018-05-21 11:21] LABS: HCT 36.7 % (34.0-46.0); HGB 11.4 gm/dL (11.4-16.0); MCH 29.2 pg (25.0-35.0); MCHC 31.2 g/dL (31.0-37.0); MCV 93.5 fL (80.0-100.0); Mean Platelet Volume 6.3; Platelet Count 622 k/uL (150-450); RBC 3.92 m/uL (3.80-5.40); RDW 13.3 % (11.5-15.5); WBC 10.2 k/uL (3.8-10.6)
[2018-05-21 11:38] LABS: ALT 77 U/L (9-52); AST 57 U/L (14-36); Albumin 2.7 g/dL (3.5-5.0); Alkaline Phosphatase 62 U/L (38-126); Anion Gap 6 mmol/L; Blood Urea Nitrogen 17 mg/dL (7-17); Calcium 9.7 mg/dL (8.4-10.2); Carbon Dioxide 25 mmol/L (22-30); Chloride 103 mmol/L (98-107); Glucose 132 mg/dL (74-99); Potassium 4.7 mmol/L (3.5-5.1); Sodium 134 mmol/L (137-145); Total Bilirubin 0.3 mg/dL (0.2-1.3)
[2018-05-21] MEDS: VANCOMYCIN 1,250 MG in SODIUM CHLORIDE 0.9% 250 ML IVPB SCH ×2 (12:35→23:10)
[2018-05-21] MEDS ORDERED: IPRATROPIUM-ALBUTEROL 3 ML NEB INHALATION PRN (14:07)
--- NOTE | 2018-05-21 14:07 | P.PN ---
Subjective Progress Note Date: 05/21/18 Principal diagnosis: The patient is seen today 05/21/2018 in follow-up on the regular medical floor. She has a history of recurrent metastatic carcinoma, breast primary. On 04/23 she was initiated on weekly Taxol and Herceptin/pejeta she initially was tolerating it fairly well but on 10/17/2018 she was quite short of breath with a dry nonproductive cough, diarrhea and weight loss chills and fatigue. She was hypoxemic and was admitted here for the same. She was seen yesterday in consultation. Chest x-ray findings are suggestive of lymphangitic carcinomatosis or cysts infection or pulmonary edema. Early this morning she had worsening shortness of breath. She was trialed on 15 L high flow with O2 saturations only at 78%, nonrebreather was trialed with O2 saturation 89%. She was subsequently placed on the AirVo and 55 L at 86% FiO2 and O2 saturations were maintained in the 90s. She is seen today in follow-up. She is currently sitting up in bed. Awake and alert. A bit more comfortable. She's been afebrile. Hemodynamically stable. Blood cultures reveal no growth. White count 10.2. Hemoglobin 11.4. Creatinine 0.37. ProBNP 222. Pro-calcitonin 0.09. She is currently on vancomycin and Levaquin along with IV Solu-Medrol. Objective - Vital Signs Vital signs: Vital Signs Temp 98.1 F 05/21/18 11:50 Pulse 98 05/21/18 11:50 Resp 22 05/21/18 11:50 BP 123/79 05/21/18 11:50 Pulse Ox 95 05/21/18 12:45 Intake & Output 05/20/18 05/21/18 05/21/18 18:59 06:59 18:59 Intake Total 1080 1390 Balance 1080 1390 Weight 53.07 kg Intake: Intake, IV Titration 490 Amount Sodium Chloride 0.9% 1, 240 000 ml @ 20 mls/hr IV . Q24H [facility] Rx#:[id number] Vancomycin 1,000 mg In 250 Sodium Chloride 0.9% 250 ml @ 125 mls/hr IVPB Q12H [facility] Rx#:[id number] Oral 1080 900 Other: Voiding Method Toilet Bedside Commode # Voids 3 2 # Bowel Movements 2 - Exam GENERAL EXAM: Frail, cachectic. Fairly comfortable in no apparent distress. HEAD: Normocephalic. Alopecia secondary to chemotherapy. EYES: Normal reaction of pupils, equal size. NOSE: Clear with pink turbinates. THROAT: No erythema or exudates. NECK: No masses, no JVD. CHEST: No chest wall deformity. LUNGS: Equal air entry with dry basilar crackles, few scattered rhonchi. CVS: S1 and S2 normal with no audible murmur, regular rhythm. ABDOMEN: No hepatosplenomegaly, normal bowel sounds, no guarding or rigidity. SPINE: No scoliosis or deformity SKIN: No rashes CENTRAL NERVOUS SYSTEM: No focal deficits, tone is normal in all 4 extremities. EXTREMITIES: There is no peripheral edema. No clubbing, no cyanosis. Peripheral pulses are intact. - Labs CBC & Chem 7: 05/21/18 10:58 05/21/18 10:58 Labs: Abnormal Lab Results - Last 24 Hours (Table) 05/21/18 05/21/18 Range/Units 10:58 10:58 Plt Count 622 H (150-450) k/uL Sodium 134 L (137-145) mmol/L Creatinine 0.37 L (0.52-1.04) mg/dL Glucose 132 H (74-99) mg/dL AST 57 H (14-36) U/L ALT 77 H (9-52) U/L Total Protein 5.0 L (6.3-8.2) g/dL Albumin 2.7 L (3.5-5.0) g/dL Microbiology - Last 24 Hours (Table) 05/19/18 11:43 Blood Culture - Preliminary Blood No Growth after 24 hours Assessment and Plan Assessment: Impression: #1 Acute hypoxemic respiratory failure secondary to suspected lymphangitic carcinomatosis versus infection or pulmonary edema. Pro-calcitonin 0.09. ProBNP 222. No leukocytosis. Afebrile. #2 Recurrent metastatic breast cancer. She was initiated on Taxol with Herceptin/pejeta as weekly dosing on 04/23/2018, previously had undergone bilateral mastectomy. #3 Gastroesophageal reflux disease. #4 History of skin cancer. #5 Thyroid nodules. #6 History of psoriasis. #7 History of urinary tract infection Plan: The patient was seen and evaluated by Dr. Casillas. He does feel this is more a picture of lymphangitic carcinomatosis versus infection or pulmonary edema. He did inform the patient and her family, Dr. Mario and Dr. Key regarding his suspected diagnosis regarding her acute hypoxemic respiratory failure. Pro- calcitonin level was 0.09. Could discontinue her at least de-escalate antibiotics. Could also discontinue IV Solu-Medrol. We will add DuoNeb inhalations 4 times a day and when necessary. Continue to titrate down the FiO2 as tolerated. Remain on the AirVo for now. We will continue to follow and make further recommendations based on her clinical status. I, the cosigning physician, performed a history & physical examination of the patient. Lungs sounds with few scattered rhonchi, coarse crackles in the posterior bases. Maintaining good O2 saturations in the 90s on 80% FiO2 and 55 L on the AirVo device.. I discussed the assessment and plan of care with my nurse practitioner, Wendy Rashid. I attest to the above note as dictated by her.
[2018-05-21] MEDS ORDERED: RX INFO: IV CONTRAST WAS GIVEN 1 EACH MISC MISCELLANE PRN (14:32)
--- NOTE | 2018-05-21 14:33 | P.PN ---
Subjective Progress Note Date: 05/21/18 72-year-old female one of my office patient with few medical problem who was breast-cancer survival for over 10 years who had left sided mastectomy in 2000 for breast cancer and had in 2007 right-sided breast cancer with mastectomy and chemotherapy. Patient developed in the summer of 2017 slight pneumonia in the right lung was treated and failure to treatment ended up going for CAT scan findings were consistent with mass in the right lung consistent with metastasis. Patient was back to see Dr. Key and started on chemotherapy for metastasis take breast cancer to the lung. Patient had chemotherapy last week she had central line port in the right subclavian area and she seen in the oncology clinic on regular basis. Patient called Dr. Key's office today concerned about worsening shortness of breath cough wheezes with severe hypoxia and cough productive.phlegm ended up [facility] and evaluated surprisingly her chest x-ray showed bilateral infiltrates worse on the left in the right side patient was diagnosed with pneumonia been immunosuppressive was started on vancomycin and cefepime and azithromycin, bronchodilator and smaller dose of Solu-Medrol will admit patient to the hospital with above problem. 05/20: Last evening, patient had a drop in her O2 saturation 89% on 4 L. Apparently this happened while she was ambulating. The increased oxygen to 6 L and then finally to a Ventimask and nonrebreather at 15 L. At that point, O2 saturation came up to 95%. Patient is now on high flow nasal cannula at 15 L and pulse ox is 92-94%. She has been afebrile. Heart rate running in the 90s and low 100s. White count is 7.5, platelet count 585, sodium 135, BUN 18 creatinine 0.47. Patient is followed by Dr. Casillas. Patient is continued on IV vancomycin and IV Levaquin will be added. 05/21: Patient has been afebrile, pulse ox is 91% on high flow O2 at FiO2 of 86, respirations 20-22, heart rate in the 90s, blood pressure 120/78. Patient is followed by oncology. There is concern for lymphangitic spread of disease. Dr. Casillas has discussed with the patient that this is related to cancer versus pneumonia. Pro-calcitonin level 0.09 and he recommends discontinuing or de- escalating antibiotics and discontinue Solu-Medrol.patient is currently on Levaquin and vancomycin and Solu-Medrol at 40 mg IV every 8 hours. No changes made today. CT of the chest is ordered. Review of Systems CONSTITUTIONAL: Well-developed mild acute respiratory distress. Has lost her hair from chemotherapy. denies fever. Denies chills. reports generalized weakness. EYES: No icterus sclerae, no conjunctivitis. EARS, NOSE, MOUTH, THROAT, and FACE: No sore throat, lymphadenopathy, carotid bruits or deformity. RESPIRATORY: Positive shortness of breath cough wheezes CARDIOVASCULAR: No CP, Palpitation, PND, Orthopnea, or angina. GASTROINTESTINAL: No Abd pain, positive nausea no vomiting positive diarrhea on and off, no constipation, No GI Bleed, no distention or masses. GENITOURINARY: Negative for Hematuria or UTI, no kidney stones. INTEGUMENT/BREAST: Negative for any muscular injury with mild osteoarthritis.. HEMATOLOGIC/LYMPHATIC: Negative for bleed or purpura. MUSCULOSKELTAL: Negative for Myalgia or arthralgia. NEURLOGICAL: No LOC, Sz or syncope, blurred vision dizziness or abnormality.. BEHAVIORAL/PSYCH: Anxiety ENDOCRINE: Negative. Objective - Vital Signs Vital signs: Vital Signs Temp 98.0 F 05/21/18 05:21 Pulse 98 05/21/18 05:21 Resp 20 05/21/18 05:21 BP 120/78 05/21/18 05:21 Pulse Ox 91 L 05/21/18 08:22 Intake & Output 05/20/18 05/21/18 05/21/18 18:59 06:59 18:59 Intake Total 1080 1390 Balance 1080 1390 Weight 53.07 kg Intake: Intake, IV Titration 490 Amount Sodium Chloride 0.9% 1, 240 000 ml @ 20 mls/hr IV . Q24H [facility] Rx#:[id number] Vancomycin 1,000 mg In 250 Sodium Chloride 0.9% 250 ml @ 125 mls/hr IVPB Q12H [facility] Rx#:[id number] Oral 1080 900 Other: Voiding Method Toilet Bedside Commode # Voids 3 2 # Bowel Movements 2 - Exam General Appearance: Alert, cooperative, mild distress at rest, appears stated age. Neck HEENT: Supple, no lymphadenopathy, no thyroid enlargement, no carotid bruits. Lungs: Decreased breath sound bilaterally with worsening rhonchi the left side positive crackles in the bases bilaterally worse on the left. Chest Wall: Decrease expansion with deep inspiration no tenderness and no deformity was found on exam, no costochondral pain or discomfort. Heart: Regular rate and rhythm, S1, S2 normal, no murmur, rub or gallop. Back: Symmetric, no curvature, ROM normal, no CVA tenderness. Abdomen: Soft, non-tender, bowel sounds active all four quadrants, no masses, no organomegaly. Extremities: Extremities normal, atraumatic, no cyanosis or edema. Pulses: 2+ and symmetric. Skin: Skin color, texture, tugor normal, no rashes or lesions. Neurologic: Alert oriented x3 cranial nerves II through XII intact, no motor deficit, gait not assessed. - Labs CBC & Chem 7: 05/21/18 10:58 05/21/18 10:58 Labs: Abnormal Lab Results - Last 24 Hours (Table) 05/20/18 05/20/18 Range/Units 08:48 08:48 MCHC 30.7 L (31.0-37.0) g/dL Plt Count 585 H (150-450) k/uL Lymphocytes # 0.4 L (1.0-4.8) k/uL Sodium 135 L (137-145) mmol/L BUN 18 H (7-17) mg/dL Creatinine 0.47 L (0.52-1.04) mg/dL Glucose 140 H (74-99) mg/dL Calcium 10.4 H (8.4-10.2) mg/dL AST 41 H (14-36) U/L Total Protein 5.8 L (6.3-8.2) g/dL Albumin 3.0 L (3.5-5.0) g/dL Microbiology - Last 24 Hours (Table) 05/19/18 11:43 Blood Culture - Preliminary Blood No Growth after 24 hours Assessment and Plan Plan: 1 acute hypoxic respiratory failure of reactive airway with possible obstructive pneumonitis and or gram-negative pneumonia especially with the immunosuppressive been on chemotherapy, patient will be treated aggressively for pneumonia. note Dr. 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 Patient is currently requiring 15 L high flow O2 by nasal cannula. CT chest ordered. 2 bilateral pneumonia, gram-negative inpatient on chemotherapy and immunosuppressive. Continue vancomycin and Levaquin will be added. Patient received a dose of cefepime and azithromycin in the ER. Consult with pulmonary medicine and oncology appreciated. 3 severe wheezes with reactive airway most likely caused by the severity of the pneumonia patient be started on Solu-Medrol along with albuterol/ipratropium no need for steroid nebulizer this point. 4 metastasis from breast cancer: Has been going through chemotherapy with Dr. Key. 5 hyperlipidemia: Has been on Zocor 10 mg daily. 6 severe GERD: Patient is on omeprazole 20 mg daily. 7 Mild anxiety attacks: Has been on Xanax and lorazepam as needed. 8 DVT prophylaxis: Patient will be on heparin 5000 units subcutaneous twice a day. CODE STATUS: Full code. Discharge plan: Return home. PT and OT added. Impression and plan of care have been directed as dictated by the signing physician. Larissa Polanco nurse practitioner acting as scribe for signing physician.
[2018-05-21] MEDS: LEVOFLOXACIN 750MG-D5W PMX 750 MG in DEXTROSE/WATER 1 150ML.BAG IVPB SCH (15:07)
[2018-05-21] MEDS: ACETAMINOPHEN TAB 325 MG TAB PO PRN (16:20)
[2018-05-21] MEDS: IPRATROPIUM-ALBUTEROL 3 ML NEB INHALATION SCH ×2 (16:55→20:22)
[2018-05-21] MEDS: SODIUM CHLORIDE 0.9% 1,000 ML IV SCH (17:04)
--- NOTE | 2018-05-21 17:10 | CT ---
EXAMINATION TYPE: CT chest w con DATE OF EXAM: 05/21/2018 COMPARISON: 02/23/2018 HISTORY: f/u pneumonia CT DLP: 242.2 mGycm Automated exposure control for dose reduction was used. CONTRAST: CT scan of the chest is performed with IV Contrast, patient injected with 100 mL of Isovue 300. FINDINGS: There are moderate bilateral pleural effusions and large on the right side. There is lobulated 2.5 cm cystic area in the superior right lobe of the liver. There is extensive airspace infiltrate and atel ectasis in both lower lobes. There is extensive groundglass interstitial infiltrate and airspace infi ltrate in the left upper lobe. There is thickening of the major fissures. There are a few paratrachea l lymph nodes that measure up to 1 cm. There are no hilar masses. Heart size is normal. There is smal l pericardial effusion. Thoracic aorta shows no evidence of aneurysm or dissection. There is right br east implant. There are spondylotic mild changes in the thoracic spine. I see no bony destructive pro cess. IMPRESSION: Extensive airspace infiltrates bilaterally and more on the left side have increased sign ificantly compared to old CT scan. There is increased bilateral pleural effusions. There is slight in creased pericardial effusion.
--- NOTE | 2018-05-21 17:42 | P.PN ---
<Amanda Galdamez - Last Filed: 05/21/18 17:39> Subjective Progress Note Date: 05/21/18 Principal diagnosis: Acute on Chronic Hypoxic Respiratory Failure Patient is feeling ok and in good spirits, discussed with Dr. Key and plan to continue supportive care through weekend and monitor for improvement. at bedside. Objective - Vital Signs Vital signs: Vital Signs Temp 98.1 F 05/21/18 11:50 Pulse 108 H 05/21/18 17:08 Resp 22 05/21/18 11:50 BP 123/79 05/21/18 11:50 Pulse Ox 95 05/21/18 14:16 Intake & Output 05/20/18 05/21/18 05/21/18 18:59 06:59 18:59 Intake Total 1080 1390 Balance 1080 1390 Weight 53.07 kg Intake: Intake, IV Titration 490 Amount Sodium Chloride 0.9% 1, 240 000 ml @ 20 mls/hr IV . Q24H [facility] Rx#:[id number] Vancomycin 1,000 mg In 250 Sodium Chloride 0.9% 250 ml @ 125 mls/hr IVPB Q12H [facility] Rx#:[id number] Oral 1080 900 Other: Voiding Method Toilet Bedside Commode # Voids 3 2 # Bowel Movements 2 - Exam Constitutional General appearance: average body habitus, cooperative, mild distress - EENT Eyes: anicteric sclerae, EOMI ENT: hearing grossly normal, normal oropharynx - Neck Neck: lymphadenopathy (barely palpable, in left supraclavicular area) - Respiratory Respiratory: bilateral: diminished, rhonchi - Cardiovascular Rhythm: regular Heart sounds: normal: S1, S2 Abnormal Heart Sounds: no systolic murmur, no diastolic murmur, no rub, no S3 Gallop, no S4 Gallop, no click, no other leg Peripheral Edema: bilateral: None - Gastrointestinal General gastrointestinal: no absent bowel sounds, no decreased bowel sounds, no distended, no hepatomegaly, no hyperactive bowel sounds, normal bowel sounds, no organomegaly, no rigid, no scaphoid, soft, no splenomegaly, no tenderness, no umbilical hernia, no ventral hernia - Neurologic Neurologic: CNII-XII intact - Musculoskeletal Musculoskeletal: generalized weakness - Psychiatric Psychiatric: A&O x's 3, appropriate affect, intact judgment & insight - Labs CBC & Chem 7: 05/21/18 10:58 05/21/18 10:58 Labs: Abnormal Lab Results - Last 24 Hours (Table) 05/21/18 05/21/18 Range/Units 10:58 10:58 Plt Count 622 H (150-450) k/uL Sodium 134 L (137-145) mmol/L Creatinine 0.37 L (0.52-1.04) mg/dL Glucose 132 H (74-99) mg/dL AST 57 H (14-36) U/L ALT 77 H (9-52) U/L Total Protein 5.0 L (6.3-8.2) g/dL Albumin 2.7 L (3.5-5.0) g/dL Microbiology - Last 24 Hours (Table) 05/19/18 11:43 Blood Culture - Preliminary Blood No Growth after 48 hours Assessment and Plan Plan: Chest x-ray: report reviewed Assessment and Plan (1) Metastatic disease Current Visit: Yes Status: Acute Priority: High Code(s): C79.9 - SECONDARY MALIGNANT NEOPLASM OF UNSPECIFIED SITE SNOMED Code(s): 369115496 (2) Cancer of left breast Current Visit: Yes Status: Chronic Priority: High Code(s): C50.912 - MALIGNANT NEOPLASM OF UNSPECIFIED SITE OF LEFT FEMALE BREAST SNOMED Code(s): 932838279 Plan: - New Metastatic Disease to the lungs and status post first and partial second cycle of chemotherapy with Taxol, Perjeta, and Herceptin. - Rec continuing supportive care through weekend with steroids, antibiotics, and High Flow Oxygen and monitor for improvement - If no improvement or worsening, increased concern for lymphagenic spread will provide procedural requests per Dr. Key. - Pulmonary Following, monitor closely. Amanda Galdamez NP <Patricia,Edouard - Last Filed: 05/23/18 22:13> Objective - Vital Signs Vital signs: Vital Signs Temp 98.1 F 05/23/18 05:00 Pulse 120 H 05/23/18 11:24 Resp 44 H 05/23/18 16:57 BP 155/93 05/23/18 05:00 Pulse Ox 87 L 05/23/18 08:12 Intake & Output 05/23/18 05/23/18 05/24/18 06:59 18:59 06:59 Intake Total 390 250 Balance 390 250 Intake: Intake, IV Titration 390 250 Amount Sodium Chloride 0.9% 1, 140 000 ml @ 20 mls/hr IV . Q24H [facility] Rx#:[id number] Vancomycin 1,000 mg In 250 Sodium Chloride 0.9% 250 ml @ 125 mls/hr IVPB Q8HR [facility] Rx#:[id number] Vancomycin 1,250 mg In 250 Sodium Chloride 0.9% 250 ml @ 125 mls/hr IVPB Q12H [facility] Rx#:[id number] Other: Voiding Method Bedside Commode Indwelling Catheter # Voids 2 - Labs CBC & Chem 7: 05/22/18 07:23 05/22/18 07:23 Labs: Microbiology - Last 24 Hours (Table) 05/22/18 14:30 Acid Fast Bacilli Smear - Final Pleural Fluid Acid Fast Bacilli Culture - Preliminary 05/22/18 14:30 Gram Stain - Preliminary Pleural Fluid Body Fluid Culture - Preliminary 05/19/18 11:43 Blood Culture - Preliminary Blood No Growth after 96 hours 05/22/18 14:30 Fungal Culture - Preliminary Pleural Fluid Assessment and Plan (1) Acute respiratory failure Status: Acute Code(s): J96.00 - ACUTE RESPIRATORY FAILURE, UNSP W HYPOXIA OR HYPERCAPNIA SNOMED Code(s): 16785836 (2) Metastatic disease Status: Acute Priority: High Code(s): C79.9 - SECONDARY MALIGNANT NEOPLASM OF UNSPECIFIED SITE SNOMED Code(s): 772984512 Plan: Pt examined and evaluated. Continue aggressive supportive care. D/w Pulmonary re poss thoracentesis if pt does not improve
[2018-05-21] MEDS ORDERED: SODIUM CHLORIDE 0.65% NASAL SPRAY 44 ML BTL NASAL PRN (18:17)
[2018-05-21] MEDS: ATORVASTATIN 10 MG TAB PO SCH (20:52)
[2018-05-22] MEDS: ALPRAZolam 0.5 MG TAB PO PRN (00:35)
[2018-05-22] MEDS: ACETAMINOPHEN TAB 325 MG TAB PO PRN ×2 (00:36→09:57)
[2018-05-22 07:47] LABS: HCT 35.3 % (34.0-46.0); HGB 11.4 gm/dL (11.4-16.0); MCH 30.5 pg (25.0-35.0); MCHC 32.2 g/dL (31.0-37.0); MCV 94.7 fL (80.0-100.0); Mean Platelet Volume 6.1; Platelet Count 596 k/uL (150-450); RBC 3.73 m/uL (3.80-5.40); RDW 13.5 % (11.5-15.5); WBC 9.2 k/uL (3.8-10.6)
[2018-05-22 08:00] LABS: ALT 128 U/L (9-52); AST 84 U/L (14-36); Albumin 2.6 g/dL (3.5-5.0); Alkaline Phosphatase 65 U/L (38-126); Anion Gap 7 mmol/L; Blood Urea Nitrogen 20 mg/dL (7-17); Calcium 9.3 mg/dL (8.4-10.2); Carbon Dioxide 24 mmol/L (22-30); Chloride 100 mmol/L (98-107); Glucose 138 mg/dL (74-99); Potassium 4.7 mmol/L (3.5-5.1); Sodium 131 mmol/L (137-145); Total Bilirubin 0.3 mg/dL (0.2-1.3)
[2018-05-22] MEDS: IPRATROPIUM-ALBUTEROL 3 ML NEB INHALATION SCH ×4 (08:02→20:12)
[2018-05-22] MEDS: PANTOPRAZOLE 40 MG TABLET PO SCH (09:01)
[2018-05-22] MEDS: MEGESTROL 400 MG/10 ML CUP PO SCH (09:03)
[2018-05-22] MEDS: HEPARIN SODIUM,PORCINE 5,000 UNIT/ML 1 ML VIAL SQ SCH ×2 (09:03→21:04)
[2018-05-22] MEDS: LORazepam 0.5 MG TAB PO SCH ×3 (09:03→21:04)
[2018-05-22] MEDS: methylPREDNISolone SOD SUCCI 40 MG/ML 1 ML VIAL IV SCH (09:03)
[2018-05-22] MEDS: TIMOLOL 0.5% OPHTH DROPS 5 ML BTL BOTH EYES SCH ×2 (09:04→21:05)
[2018-05-22] MEDS: BRIMONIDINE TARTRATE 0.2% DROPS 5 ML BTL BOTH EYES SCH ×2 (09:04→21:06)
--- NOTE | 2018-05-22 11:05 | P.PN ---
Subjective 72-year-old female one of my office patient with few medical problem who was breast-cancer survival for over 10 years who had left sided mastectomy in 2001 for breast cancer and had in 2007 right-sided breast cancer with mastectomy and chemotherapy. Patient developed in the summer of 2017 slight pneumonia in the right lung was treated and failure to treatment ended up going for CAT scan findings were consistent with mass in the right lung consistent with metastasis. Patient was back to see Dr. Key and started on chemotherapy for metastasis take breast cancer to the lung. Patient had chemotherapy last week she had central line port in the right subclavian area and she seen in the oncology clinic on regular basis. Patient called Dr. Key's office today concerned about worsening shortness of breath cough wheezes with severe hypoxia and cough productive.phlegm ended up been directly to go to [facility] department where was seen and evaluated surprisingly her chest x-ray showed bilateral infiltrates worse on the left in the right side patient was diagnosed with pneumonia been immunosuppressive was started on vancomycin and cefepime and azithromycin, bronchodilator and smaller dose of Solu-Medrol will admit patient to the hospital with above problem. 05/20: Last evening, patient had a drop in her O2 saturation 89% on 4 L. Apparently this happened while she was ambulating. The increased oxygen to 6 L and then finally to a Ventimask and nonrebreather at 15 L. At that point, O2 saturation came up to 95%. Patient is now on high flow nasal cannula at 15 L and pulse ox is 92-94%. She has been afebrile. Heart rate running in the 90s and low 100s. White count is 7.5, platelet count 585, sodium 135, BUN 18 creatinine 0.47. Patient is followed by Dr. Casillas. Patient is continued on IV vancomycin and IV Levaquin will be added. 05/21: Patient has been afebrile, pulse ox is 91% on high flow O2 at FiO2 of 86, respirations 20-22, heart rate in the 90s, blood pressure 120/78. Patient is followed by oncology. There is concern for lymphangitic spread of disease. Dr. Casillas has discussed with the patient that this is related to cancer versus pneumonia. Pro-calcitonin level 0.09 and he recommends discontinuing or de- escalating antibiotics and discontinue Solu-Medrol.patient is currently on Levaquin and vancomycin and Solu-Medrol at 40 mg IV every 8 hours. No changes made today. CT of the chest is ordered. 05/22: Patient sitting up in bed, complains of worsening shortness of breath. Patient was on high flow nasal cannula and saturating at 70%, nonrebreather was attempted on 15 L oxygen increased 86%, then Aervo was applied with 55 L with FiO2 80% on high flow, she is now saturating in the low 90%. She is still symptomatic and complains of worsening shortness of breath, with tachypnea and use of accessory muscles. Patient currently declining steroids reports it makes her too anxious and causes insomnia and doesn't feel they are beneficial anyway. Solu-Medrol was discontinued as it is most likely not beneficial, as respiratory failure is related mostly to the cancer versus pneumonia. Plans to keep patient comfortable Objective - Vital Signs Vital signs: Vital Signs Temp 97.8 F 05/22/18 05:00 Pulse 107 H 05/22/18 09:19 Resp 20 05/22/18 05:00 BP 126/86 05/22/18 05:00 Pulse Ox 92 L 05/22/18 09:19 Intake & Output 05/21/18 05/22/18 05/22/18 18:59 06:59 18:59 Intake Total 400 450 Balance 400 450 Intake: Intake, IV Titration 400 450 Amount Levofloxacin 750Mg-D5w 150 Pmx 750 mg In Dextrose/ Water 1 150ml.bag @ 100 mls/hr IVPB Q24H [facility] Rx#: [id number] Sodium Chloride 0.9% 1, 200 000 ml @ 20 mls/hr IV . Q24H [facility] Rx#:[id number] Vancomycin 1,250 mg In 250 250 Sodium Chloride 0.9% 250 ml @ 125 mls/hr IVPB Q12H [facility] Rx#:[id number] Other: Voiding Method Bedside Commode Bedside Commode - Constitutional General appearance: Present: average body habitus, cooperative, mild distress - EENT Eyes: Present: EOMI, PERRLA ENT: Present: hearing grossly normal, normal oropharynx - Neck Neck: Present: normal ROM. Absent: lymphadenopathy, rigidity, stridor, thyromegaly - Respiratory Details: Use of accessory muscles and tachypenea, on Aervo Respiratory: bilateral: diminished, negative: rhonchi - Cardiovascular Details: Tachycardia with a rate of 110 Rhythm: regular Heart sounds: normal: S1, S2 - Gastrointestinal General gastrointestinal: Present: normal bowel sounds, soft. Absent: distended , hepatomegaly, organomegaly, tenderness - Neurologic Neurologic: Present: CNII-XII intact. Absent: focal deficits - Musculoskeletal Musculoskeletal: Present: gait normal, generalized weakness, strength equal bilaterally. Absent: right sided weakness, left sided weakness - Psychiatric Psychiatric: Present: A&O x's 3 - Labs CBC & Chem 7: 05/22/18 07:23 05/22/18 07:23 Labs: Abnormal Lab Results - Last 24 Hours (Table) 05/21/18 05/21/18 05/22/18 Range/Units 10:58 10:58 07:23 RBC 3.73 L (3.80-5.40) m/uL Plt Count 622 H 596 H (150-450) k/uL Sodium 134 L (137-145) mmol/L BUN (7-17) mg/dL Creatinine 0.37 L (0.52-1.04) mg/dL Glucose 132 H (74-99) mg/dL AST 57 H (14-36) U/L ALT 77 H (9-52) U/L Total Protein 5.0 L (6.3-8.2) g/dL Albumin 2.7 L (3.5-5.0) g/dL 05/22/18 Range/Units 07:23 RBC (3.80-5.40) m/uL Plt Count (150-450) k/uL Sodium 131 L (137-145) mmol/L BUN 20 H (7-17) mg/dL Creatinine 0.39 L (0.52-1.04) mg/dL Glucose 138 H (74-99) mg/dL AST 84 H (14-36) U/L ALT 128 H (9-52) U/L Total Protein 5.0 L (6.3-8.2) g/dL Albumin 2.6 L (3.5-5.0) g/dL Microbiology - Last 24 Hours (Table) 05/19/18 11:43 Blood Culture - Preliminary Blood No Growth after 48 hours Assessment and Plan Plan: 1 acute hypoxic respiratory failure of reactive airway with possible obstructive pneumonitis and or gram-negative pneumonia especially with the immunosuppressive been on chemotherapy, patient will be treated aggressively for pneumonia. Note Dr. 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 She continues on Levaquin and vancomycin, Solu-Medrol was discontinued, onAervo 2 bilateral pneumonia, gram-negative inpatient on chemotherapy and immunosuppressive. Continue vancomycin and Levaquin will be added. Patient received a dose of cefepime and azithromycin in the ER. Consult with pulmonary medicine and oncology appreciated. 3 severe wheezes with reactive airway Solu-Medrol discontinued continue with albuterol and ipratropium 4 metastasis from breast cancer: Has been going through chemotherapy with Dr. Key. 5 hyperlipidemia: Has been on Zocor 10 mg daily. 6 severe GERD: Patient is on omeprazole 20 mg daily. 7 Mild anxiety attacks: Has been on Xanax and lorazepam as needed. 8 DVT prophylaxis: Patient will be on heparin 5000 units subcutaneous twice a day. CODE STATUS: Full code. The above impression and plan of care have been discussed and directed by signing physician. Chelo Bear nurse practitioner acting as scribe for signing physician.
[2018-05-22] MEDS: VANCOMYCIN 1,250 MG in SODIUM CHLORIDE 0.9% 250 ML IVPB SCH ×2 (11:46→23:29)
[2018-05-22] MEDS: SODIUM CHLORIDE 0.9% 1,000 ML IV SCH (11:50)
--- NOTE | 2018-05-22 12:53 | US ---
EXAMINATION TYPE: US chest DATE OF EXAM: 05/22/2018 COMPARISON: CT chest from yesterday, CXR CLINICAL HISTORY: Markings for thoracentesis by pulmonary staff. Pleural effusion TECHNIQUE: Targeted ultrasound of the posterior lower right hemithorax EXAM MEASUREMENTS: Right Pleural Effusion pocket size: 10.7 cm Right skin surface to fluid distance: 3.7 cm Right side marked for possible thoracentesis outside the dept. Pulmonologists are able to review the images in the patient?s EMR. 3 images saved show moderate size right pleural effusion perhaps even slightly larger from recent CT. IMPRESSIONS: As above.
--- NOTE | 2018-05-22 14:55 | XR ---
EXAMINATION TYPE: XR chest 1V portable DATE OF EXAM: 05/22/2018 CLINICAL HISTORY: Right-sided thoracentesis. TECHNIQUE: Single AP portable upright view of the chest is obtained. COMPARISON: Chest x-ray from [address] chest from yesterday. FINDINGS: There is stable right internal jugular Mediport catheter. There is persistent right-sided volume loss with mediastinal shift. There is persistent right basilar opacity without pneumothorax af ter right-sided thoracentesis. Right inferior axillary surgical clips are present. There is elevated left hemidiaphragm with diffuse left lung opacity redemonstrated. Cardiac silhouette size is stable a nd mildly enlarged. Osseous structures are somewhat demineralized. IMPRESSION: No pneumothorax after right-sided thoracentesis. Persistent small right pleural effusion with associated right basilar atelectasis and/or infiltrate. Diffuse left lung edema and/or infiltrat e redemonstrated. Right-sided volume loss redemonstrated.
[2018-05-22] MEDS: LEVOFLOXACIN 750MG-D5W PMX 750 MG in DEXTROSE/WATER 1 150ML.BAG IVPB SCH (15:16)
[2018-05-22 16:40] LABS: Appearance,BF Hazy; Color,BF Orange; Nucleated Cells, Body Fluid 750 /uL
[2018-05-22 16:41] LABS: RBC, Body Fluid 13050 /uL
[2018-05-22 19:16] LABS: Mononuclear WBC,Body Fluid 100 %; Total Cells Counted,Body Fluid 100
--- NOTE | 2018-05-22 19:28 | PCN ---
PROCEDURE NOTE PROCEDURE PERFORMED: Right thoracentesis. PREOPERATIVE DIAGNOSIS: Right pleural effusion. POSTOP DIAGNOSIS: Right pleural effusion OPERATORS: Dr. Casillas and Dr. Rashid. There was informed consent and universal timeout. DESCRIPTION OF PROCEDURE: The right posterior chest was marked by ultrasound. After the area was cleansed, the patient's right pleural space was drained of about 970 mL of fluid. Indication Pleural effusion. A time-out was completed verifying correct patient, procedure, site, positioning , and implant (s) or special equipment if applicable. Ultrasound guidance was used and appropriate fluid pocket was identified and marked. Patient was positioned, prepped and draped in usual sterile fashion. Lidocaine was used to anesthetize the area. A Thoracentesis catheter was introduced into the pleural space and fluid was removed. Blood loss was none. A chest x-ray was ordered to evaluate for pneumothorax. Total Fluid Removed 970 mL Color of Fluid Fluid was sent for appropriate laboratory tests. Patient tolerated the procedure well and there were no complications. There was ultrasound markings. The fluid will be sent for analysis. There was no immediate complication. A chest x-ray was ordered just to make sure there was no pneumothorax. Again, the patient tolerated the procedure well. A chest x-ray was done to rule out pneumothorax. MMODL / IJN: [id number] /
[2018-05-22] MEDS: ATORVASTATIN 10 MG TAB PO SCH (21:04)
[2018-05-22 23:18] LABS: Total Protein, Body Fluid 2160 mg/dL
[2018-05-23] MEDS: ZOLPIDEM 5 MG TAB PO PRN (00:49)
[2018-05-23 06:01] VITALS: TEMP 98.1
[2018-05-23 06:02] VITALS: BP 155/93
[2018-05-23] MEDS: IPRATROPIUM-ALBUTEROL 3 ML NEB INHALATION SCH ×3 (07:09→16:46)
[2018-05-23] MEDS: MEGESTROL 400 MG/10 ML CUP PO SCH (08:57)
[2018-05-23] MEDS: HEPARIN SODIUM,PORCINE 5,000 UNIT/ML 1 ML VIAL SQ SCH (09:28)
[2018-05-23] MEDS: LORazepam 0.5 MG TAB PO SCH ×2 (09:28→16:51)
[2018-05-23] MEDS: PANTOPRAZOLE 40 MG TABLET PO SCH (09:28)
[2018-05-23] MEDS ORDERED: VANCOMYCIN 1,000 MG in SODIUM CHLORIDE 0.9% 250 ML IVPB SCH (10:30)
[2018-05-23] MEDS: BRIMONIDINE TARTRATE 0.2% DROPS 5 ML BTL BOTH EYES SCH (10:32)
[2018-05-23] MEDS: TIMOLOL 0.5% OPHTH DROPS 5 ML BTL BOTH EYES SCH (10:32)
--- NOTE | 2018-05-23 10:37 | P.PN ---
Subjective 72-year-old female one of my office patient with few medical problem who was breast-cancer survival for over 10 years who had left sided mastectomy in 2001 for breast cancer and had in 2007 right-sided breast cancer with mastectomy and chemotherapy. Patient developed in the summer of 2017 slight pneumonia in the right lung was treated and failure to treatment ended up going for CAT scan findings were consistent with mass in the right lung consistent with metastasis. Patient was back to see Dr. Key and started on chemotherapy for metastasis take breast cancer to the lung. Patient had chemotherapy last week she had central line port in the right subclavian area and she seen in the oncology clinic on regular basis. Patient called Dr. Key's office today concerned about worsening shortness of breath cough wheezes with severe hypoxia and cough productive.phlegm ended up been directly to go to [facility] department where was seen and evaluated surprisingly her chest x-ray showed bilateral infiltrates worse on the left in the right side patient was diagnosed with pneumonia been immunosuppressive was started on vancomycin and cefepime and azithromycin, bronchodilator and smaller dose of Solu-Medrol will admit patient to the hospital with above problem. 05/20: Last evening, patient had a drop in her O2 saturation 89% on 4 L. Apparently this happened while she was ambulating. The increased oxygen to 6 L and then finally to a Ventimask and nonrebreather at 15 L. At that point, O2 saturation came up to 95%. Patient is now on high flow nasal cannula at 15 L and pulse ox is 92-94%. She has been afebrile. Heart rate running in the 90s and low 100s. White count is 7.5, platelet count 585, sodium 135, BUN 18 creatinine 0.47. Patient is followed by Dr. Casillas. Patient is continued on IV vancomycin and IV Levaquin will be added. 05/21: Patient has been afebrile, pulse ox is 91% on high flow O2 at FiO2 of 86, respirations 20-22, heart rate in the 90s, blood pressure 120/78. Patient is followed by oncology. There is concern for lymphangitic spread of disease. Dr. Casillas has discussed with the patient that this is related to cancer versus pneumonia. Pro-calcitonin level 0.09 and he recommends discontinuing or de- escalating antibiotics and discontinue Solu-Medrol.patient is currently on Levaquin and vancomycin and Solu-Medrol at 40 mg IV every 8 hours. No changes made today. CT of the chest is ordered. 2/2: Patient sitting up in bed, complains of worsening shortness of breath. Patient was on high flow nasal cannula and saturating at 70%, nonrebreather was attempted on 15 L oxygen increased 86%, then Aervo was applied with 55 L with FiO2 80% on high flow, she is now saturating in the low 90%. She is still symptomatic and complains of worsening shortness of breath, with tachypnea and use of accessory muscles. Patient currently declining steroids reports it makes her too anxious and causes insomnia and doesn't feel they are beneficial anyway. Solu-Medrol was discontinued as it is most likely not beneficial, as respiratory failure is related mostly to the cancer versus pneumonia. Plans to keep patient comfortable 2/3: Patient evaluated today, resting in bed. Patient underwent thoracentesis yesterday by Dr. Casillas, total fluid removed was 970 mL's. Despite the thoracentesis, she is requiring high flow oxygen at O2 of 60 L and FiO2 of 95%, her oxygen saturation is 87%. She is still tachypneic with a respiratory rate of 32 and tachycardic at 120, she is still using her accessory muscles. Despite treatment, patient's overall condition continues to decline. Discussed with family today regarding hospice, they like to speak with oncology before they make a decision. Objective - Vital Signs Vital signs: Vital Signs Temp 98.1 F 05/23/18 05:00 Pulse 120 H 05/23/18 08:12 Resp 32 H 05/23/18 08:12 BP 155/93 05/23/18 05:00 Pulse Ox 87 L 05/23/18 08:12 Intake & Output 05/22/18 05/23/18 05/23/18 18:59 06:59 18:59 Intake Total 160 390 Balance 160 390 Intake: Intake, IV Titration 160 390 Amount Sodium Chloride 0.9% 1, 160 140 000 ml @ 20 mls/hr IV . Q24H [facility] Rx#:[id number] Vancomycin 1,250 mg In 250 Sodium Chloride 0.9% 250 ml @ 125 mls/hr IVPB Q12H [facility] Rx#:[id number] Other: Voiding Method Bedside Commode Bedside Commode # Voids 2 # Bowel Movements 3 - Exam - Constitutional General appearance: Present: average body habitus, cooperative, moderate distress - EENT Eyes: Present: EOMI, PERRLA ENT: Present: hearing grossly normal, normal oropharynx - Neck Neck: Present: normal ROM. Absent: lymphadenopathy, rigidity, stridor, thyromegaly - Respiratory Details: Use of accessory muscles and tachypenea with a rate of 32, on high flow via Aervo Respiratory: bilateral: diminished, negative: rhonchi - Cardiovascular Details: Tachycardia with a rate of 120 Rhythm: regular Heart sounds: normal: S1, S2 - Gastrointestinal General gastrointestinal: Present: normal bowel sounds, soft. Absent: distended , hepatomegaly, organomegaly, tenderness - Neurologic Neurologic: Present: CNII-XII intact. Absent: focal deficits - Musculoskeletal Musculoskeletal: Present: generalized weakness, strength equal bilaterally. Absent: right sided weakness, left sided weakness - Psychiatric Psychiatric: Present: A&O x's 3, very drowsy - Labs CBC & Chem 7: 05/22/18 07:23 05/22/18 07:23 Labs: Microbiology - Last 24 Hours (Table) 05/22/18 14:30 Gram Stain - Preliminary Pleural Fluid Body Fluid Culture - Preliminary 05/22/18 14:30 Acid Fast Bacilli Culture - Preliminary Pleural Fluid 05/22/18 14:30 Fungal Culture - Preliminary Pleural Fluid 05/19/18 11:43 Blood Culture - Preliminary Blood No Growth after 72 hours Assessment and Plan Plan: 1 acute hypoxic respiratory failure of reactive airway with possible obstructive pneumonitis and or gram-negative pneumonia especially with the immunosuppressive been on chemotherapy, patient will be treated aggressively for pneumonia. Note Dr. 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 She continues on Levaquin and vancomycin, Solu-Medrol was discontinued, on Aervo, underwent thoracentesis yesterday. 2 bilateral pneumonia, gram-negative inpatient on chemotherapy and immunosuppressive. Continue vancomycin and Levaquin will be added. Patient received a dose of cefepime and azithromycin in the ER. Consult with pulmonary medicine and oncology appreciated. 3 severe wheezes with reactive airway Solu-Medrol discontinued continue with albuterol and ipratropium 4 metastasis from breast cancer: Has been going through chemotherapy with Dr. Key. 5 hyperlipidemia: Has been on Zocor 10 mg daily. 6 severe GERD: Patient is on omeprazole 20 mg daily. 7 Mild anxiety attacks: Has been on Xanax and lorazepam as needed. 8 DVT prophylaxis: Patient will be on heparin 5000 units subcutaneous twice a day. CODE STATUS: Full code. The above impression and plan of care have been discussed and directed by signing physician. Chelo Bear nurse practitioner acting as scribe for signing physician.
[2018-05-23] MEDS ORDERED: VANCOMYCIN TROUGH DUE 1 EACH MISC MISCELLANE ONE (11:00)
--- NOTE | 2018-05-23 11:19 | P.PN ---
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 She has a history of recurrent metastatic carcinoma, breast primary. On 04/23 she was initiated on weekly Taxol and Herceptin/pejeta she initially was tolerating it fairly well but on 10/17/2018 she was quite short of breath with a dry nonproductive cough, diarrhea and weight loss chills and fatigue. She was hypoxemic and was admitted here for the same. She was seen yesterday in consultation. Chest x-ray findings are suggestive of lymphangitic carcinomatosis or cysts infection or pulmonary edema. Early this morning she had worsening shortness of breath. She was trialed on 15 L high flow with O2 saturations only at 78%, nonrebreather was trialed with O2 saturation 89%. She was subsequently placed on the AirVo and 55 L at 86% FiO2 and O2 saturations were maintained in the 90s. She is seen today in follow-up. She is currently sitting up in bed. Awake and alert. A bit more comfortable. She's been afebrile. Hemodynamically stable. Blood cultures reveal no growth. White count 10.2. Hemoglobin 11.4. Creatinine 0.37. ProBNP 222. Pro-calcitonin 0.09. She is currently on vancomycin and Levaquin along with IV Solu-Medrol. On 05/23/2018 patient seen in follow-up on medical oncology floor. Patient is status post right thoracentesis yesterday with removal of 970 ML of pleural fluid. Cytology is pending. Fluid analysis revealed transudative fluid. Pleural fluid cultures are pending. Postthoracentesis chest x-ray showed no pneumothorax, persistent small right pleural effusion with associated right basilar atelectasis. An diffuse left lung edema was redemonstrated. Despite the thoracentesis, patient remains quite dyspneic, she still requiring high flow oxygen, she is on AIRVO with FiO2 of 95%, and at 60 L/m, she is tachycardic , heart rate is in the 120s, tachypnea, respiratory rate is 32, her O2 saturations are quite marginal, and patient is only satting 87% despite the high flow oxygen. Respirations are shallow, using accessory muscles of breathing, no fever. Lung sounds reveal coarse breath rhonchi. 0.9 normal saline at a rate of 10 ML per hour, only occasional cough, with no production of phlegm. No new labs today, no new chest x-rays. Will calcitonin level was low, and 0.09, suggesting absence of infection. She remains on antibiotics despite the negative calcitonin, currently on Levaquin and vancomycin. Objective - Vital Signs Vital signs: Vital Signs Temp 98.1 F 05/23/18 05:00 Pulse 120 H 05/23/18 08:12 Resp 32 H 05/23/18 08:12 BP 155/93 05/23/18 05:00 Pulse Ox 87 L 05/23/18 08:12 Intake & Output 05/22/18 05/23/18 05/23/18 18:59 06:59 18:59 Intake Total 160 390 Balance 160 390 Intake: Intake, IV Titration 160 390 Amount Sodium Chloride 0.9% 1, 160 140 000 ml @ 20 mls/hr IV . Q24H [facility] Rx#:[id number] Vancomycin 1,250 mg In 250 Sodium Chloride 0.9% 250 ml @ 125 mls/hr IVPB Q12H [facility] Rx#:[id number] Other: Voiding Method Bedside Commode Bedside Commode Indwelling Catheter # Voids 2 # Bowel Movements 3 - Exam GENERAL EXAM: Alert, 72-year-old frail looking white female, on AIRVO, dyspneic , tachypneic, with shallow respirations HEAD: Normocephalic/atraumatic. EYES: Normal reaction of pupils, equal size. Conjunctiva pink, sclera white. NOSE: Clear with pink turbinates. THROAT: No erythema or exudates. NECK: No masses, no JVD, no thyroid enlargement, no adenopathy. CHEST: No chest wall deformity. Symmetrical expansion. LUNGS: Equal air entry with no crackles, wheeze, coarse rhonchi, she is on high flow oxygen, with FiO2 of 95%, and 60 L/m flow CVS: Regular rate and rhythm, normal S1 and S2, no gallops, no murmurs, no rubs ABDOMEN: Soft, nontender. No hepatosplenomegaly, normal bowel sounds, no guarding or rigidity. EXTREMITIES: No clubbing, no edema, no cyanosis, 2+ pulses and upper and lower extremities. MUSCULOSKELETAL: Muscle strength and tone normal. SPINE: No scoliosis or deformity SKIN: No rashes CENTRAL NERVOUS SYSTEM: Alert and oriented -3. No focal deficits, tone is normal in all 4 extremities. PSYCHIATRIC: Alert and oriented -3. Appropriate affect. Intact judgment and insight. 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 Pro-calcitonin 0.09. ProBNP 222. No leukocytosis. Afebrile. #2. Right pleural effusion, status post right-sided thoracentesis with removal of 970 ML of pleural fluid, cytology is pending, it was a transudate, cultures are pending. #3 Recurrent metastatic breast cancer. She was initiated on Taxol with Herceptin/pejeta as weekly dosing on 04/23/2018, previously had undergone bilateral mastectomy. #4 Gastroesophageal reflux disease. #5 History of skin cancer. #6 Thyroid nodules. #7 History of psoriasis. #8 History of urinary tract infection Plan: Patient remains on AIRVO, is still satting quite marginally. Despite the thoracentesis yesterday, patient is quite tachypneic, hypoxic, and dyspneic. Pro-calcitonin was low, suggesting absence of infection. Final cultures of the pleural fluid are pending. Cytology is pending. Continue current medical treatment. Continue nebulized bronchodilators. Overall prognosis is quite guarded. I performed a history & physical examination of the patient and discussed their management with my nurse practitioner, Uzma Gonzalez. I reviewed the nurse practitioner's note and agree with the documented findings and plan of care. Lung sounds are positive for coarse rhonchi. The findings and the impression was discussed with the patient. I attest to the documentation by the nurse practitioner. Time with Patient: Less than 30
[2018-05-23 11:24] VITALS: PULSE 120
[2018-05-23] MEDS: MORPHINE SULFATE 4 MG/ML SYRINGE IVP PRN ×2 (13:24→16:55)
[2018-05-23] MEDS ORDERED: LEVOFLOXACIN 750 MG TAB PO SCH (14:00)
[2018-05-23] MEDS: SODIUM CHLORIDE 0.9% 1,000 ML IV SCH (14:36)
[2018-05-23 16:57] VITALS: RESP 44
--- NOTE | 2018-05-23 18:39 | P.PN ---
Subjective Progress Note Date: 05/23/18 The patient continues to decline, despite thoracentesis yesterday. Respiratory rate is now in the 30s. She is progressively more lethargic. No fever/chills/significant cough or bleeding Objective - Vital Signs Vital signs: Vital Signs Temp 98.1 F 05/23/18 05:00 Pulse 120 H 05/23/18 11:24 Resp 44 H 05/23/18 16:57 BP 155/93 05/23/18 05:00 Pulse Ox 87 L 05/23/18 08:12 Intake & Output 05/22/18 05/23/18 05/23/18 18:59 06:59 18:59 Intake Total 160 390 250 Balance 160 390 250 Intake: Intake, IV Titration 160 390 250 Amount Sodium Chloride 0.9% 1, 160 140 000 ml @ 20 mls/hr IV . Q24H [facility] Rx#:[id number] Vancomycin 1,000 mg In 250 Sodium Chloride 0.9% 250 ml @ 125 mls/hr IVPB Q8HR [facility] Rx#:[id number] Vancomycin 1,250 mg In 250 Sodium Chloride 0.9% 250 ml @ 125 mls/hr IVPB Q12H [facility] Rx#:[id number] Other: Voiding Method Bedside Commode Bedside Commode Indwelling Catheter # Voids 2 # Bowel Movements 3 - Constitutional Constitutional Comment(s): moderate distress - EENT Eyes: Present: EOMI - Respiratory Respiratory: bilateral: diminished, other (increased RR) - Cardiovascular Rhythm: regular Heart sounds: normal: S1, S2 - Gastrointestinal General gastrointestinal: Present: decreased bowel sounds, soft - Integumentary Integumentary: Present: normal - Neurologic Neurologic: Present: CNII-XII intact - Musculoskeletal Musculoskeletal: Present: generalized weakness, strength equal bilaterally - Psychiatric Psychiatric: Present: A&O x's 3 - Labs CBC & Chem 7: 05/22/18 07:23 05/22/18 07:23 Labs: Microbiology - Last 24 Hours (Table) 05/19/18 11:43 Blood Culture - Preliminary Blood No Growth after 96 hours 05/22/18 14:30 Gram Stain - Preliminary Pleural Fluid Body Fluid Culture - Preliminary 05/22/18 14:30 Acid Fast Bacilli Culture - Preliminary Pleural Fluid 05/22/18 14:30 Fungal Culture - Preliminary Pleural Fluid Assessment and Plan (1) Acute respiratory failure Narrative/Plan: The patient's status as continued to worsen, despite thoracentesis yesterday, as well as ongoing aggressive treatment with steroids, antibiotics, and high flow oxygen. The patient is obviously declining. I had a long discussion with the patient's family, and subsequently the patient. Given her rapid decline, the patient will likely require ventilatory support for continued respiration. However she has already indicated that she does not want that. Given her underlying condition, it is unlikely that even aggressive ventilator support would be beneficial for her. Therefore comfort care was discussed. Patient was agreeable to that. Hospice will be consulted. No further lab draws. Antibiotics will be discontinued, as the patient has had no benefit and her symptoms are likely due to underlying malignancy. The family wants to continue supportive care, and try to maintain the patient' s responsiveness, until her son reaches tonight. They are aware that this has to be balanced against her need for comfort. Patient will be started on low- dose morphine, which will be adjusted as needed for comfort. Case discussed with the pulmonary service Status: Acute Code(s): J96.00 - ACUTE RESPIRATORY FAILURE, UNSP W HYPOXIA OR HYPERCAPNIA SNOMED Code(s): 84865025 (2) Metastatic disease Narrative/Plan: The patient has recurrent metastatic breast cancer. Her disease would be expected to be responsive to multiple regimens, as she is HER-2 positive as well as hormone receptor positive. She has already started treatment. However , it was discussed with the patient and her family, that is the course of disease is so rapid has to lead to major organ decompensation, then a regimen which would be effective, may not work fast enough to improve her situation. Unfortunately this is what appears to be occurring currently. Therefore, as noted above, comfort care is felt to be appropriate to consider. They, and the patient were in agreement with the same Status: Acute Priority: High Code(s): C79.9 - SECONDARY MALIGNANT NEOPLASM OF UNSPECIFIED SITE SNOMED Code(s): 181814340
--- NOTE | 2018-05-24 12:29 | P.DS ---
Providers Date of admission: 05/19/18 13:11 Expected date of discharge: 05/24/18 Attending physician: Tyler Mario Consults: 05/19/18 13:09 Consult Physician Routine Consulting Provider: Lucero Key Consult Reason/Comments: HCAP, metastatic Breast cancer Do you want consulting provider notified?: Already Contacted 05/19/18 16:38 Consult Physician Routine Consulting Provider: Ancelmo Casillas Consult Reason/Comments: SOB Do you want consulting provider notified?: Yes Primary care physician: Tyler Fabiano [facility] Course: 72-year-old female one of my office patient with few medical problem who was breast-cancer survival for over 10 years who had left sided mastectomy in 2000 for breast cancer and had in 2007 right-sided breast cancer with mastectomy and chemotherapy. Patient developed in the summer of 2017 slight pneumonia in the right lung was treated and failure to treatment ended up going for CAT scan findings were consistent with mass in the right lung consistent with metastasis. Patient was back to see Dr. Key and started on chemotherapy for metastasis take breast cancer to the lung. Patient had chemotherapy last week she had central line port in the right subclavian area and she seen in the oncology clinic on regular basis. Patient called Dr. Key's office today concerned about worsening shortness of breath cough wheezes with severe hypoxia and cough productive.phlegm ended up been directly to go to [facility] where was seen and evaluated surprisingly her chest x-ray showed bilateral infiltrates worse on the left in the right side patient was diagnosed with pneumonia been immunosuppressive was started on vancomycin and cefepime and azithromycin, bronchodilator and smaller dose of Solu-Medrol will admit patient to the hospital with above problem. 05/20: Last evening, patient had a drop in her O2 saturation 89% on 4 L. Apparently this happened while she was ambulating. The increased oxygen to 6 L and then finally to a Ventimask and nonrebreather at 15 L. At that point, O2 saturation came up to 95%. Patient is now on high flow nasal cannula at 15 L and pulse ox is 92-94%. She has been afebrile. Heart rate running in the 90s and low 100s. White count is 7.5, platelet count 585, sodium 135, BUN 18 creatinine 0.47. Patient is followed by Dr. Casillas. Patient is continued on IV vancomycin and IV Levaquin will be added. 05/21: Patient has been afebrile, pulse ox is 91% on high flow O2 at FiO2 of 86, respirations 20-22, heart rate in the 90s, blood pressure 120/78. Patient is followed by oncology. There is concern for lymphangitic spread of disease. Dr. Casillas has discussed with the patient that this is related to cancer versus pneumonia. Pro-calcitonin level 0.09 and he recommends discontinuing or de- escalating antibiotics and discontinue Solu-Medrol.patient is currently on Levaquin and vancomycin and Solu-Medrol at 40 mg IV every 8 hours. No changes made today. CT of the chest is ordered. 05/22: Patient sitting up in bed, complains of worsening shortness of breath. Patient was on high flow nasal cannula and saturating at 70%, nonrebreather was attempted on 15 L oxygen increased 86%, then Aervo was applied with 55 L with FiO2 80% on high flow, she is now saturating in the low 90%. She is still symptomatic and complains of worsening shortness of breath, with tachypnea and use of accessory muscles. Patient currently declining steroids reports it makes her too anxious and causes insomnia and doesn't feel they are beneficial anyway. Solu-Medrol was discontinued as it is most likely not beneficial, as respiratory failure is related mostly to the cancer versus pneumonia. Plans to keep patient comfortable 3: Patient evaluated today, resting in bed. Patient underwent thoracentesis yesterday by Dr. Casillas, total fluid removed was 970 mL's. Despite the thoracentesis, she is requiring high flow oxygen at O2 of 60 L and FiO2 of 95%, her oxygen saturation is 87%. She is still tachypneic with a respiratory rate of 32 and tachycardic at 120, she is still using her accessory muscles. Despite treatment, patient's overall condition continues to decline. Discussed with family today regarding hospice, they like to speak with oncology before they make a decision. 05/24: Patient was transitioned over to inpatient hospice and on the morning of May 24. Please see nursing documentation for details. Preliminary cause of : lymphangitic carcinomatosis Discharge diagnoses: 1 acute hypoxic respiratory failure of reactive airway with possible obstructive pneumonitis and possible gram-negative pneumonia and lymphangitic carcinomatosis 2 bilateral pneumonia, gram-negative 3 severe wheezes with reactive airway 4 metastasis from breast cancer 5 hyperlipidemia 6 severe GERD 7 Mild anxiety attacks The above impression and plan of care have been discussed and directed by signing physician. Larissa Polanco nurse practitioner acting as scribe for signing physician. Patient Condition at Discharge: Undetermined Plan - Discharge Summary Discharge Rx Participant: No New Discharge Prescriptions: No Action Timolol 0.5% Ophth Soln [Timoptic 0.5% Ophth Soln] 1 drop BOTH EYES BID Simvastatin [Zocor] 10 mg PO HS Omeprazole [PriLOSEC] 20 mg PO AC-BRKFST Megestrol [Megace] 800 mg PO DAILY LORazepam [Ativan] 0.5 mg PO TID ALPRAZolam [Xanax] 0.5 mg PO BID PRN PRN Reason: Anxiety Discharge Medication List Simvastatin [Zocor] 10 mg PO HS 01/03/16 [History] Timolol 0.5% Ophth Soln [Timoptic 0.5% Ophth Soln] 1 drop BOTH EYES BID [History] Omeprazole [PriLOSEC] 20 mg PO AC-BRKFST 04/21/18 [History] ALPRAZolam [Xanax] 0.5 mg PO BID PRN 05/19/18 [History] LORazepam [Ativan] 0.5 mg PO TID 05/19/18 [History] Megestrol [Megace] 800 mg PO DAILY 05/19/18 [History] Follow up Appointment(s)/Referral(s): Tyler Mario MD [Primary Care Provider] - 1-2 days Discharge Disposition: HOME WITH HOSPICE
== END 2018-05-23 17:07 | disposition hospice, inpatient (51) | DRG 177 ==
LOC: EC 10:48 → 3NMEDONC 13:11
PROVIDERS: ADMIT Internal Medicine Geriatric Medicine; ATTEND Internal Medicine Geriatric Medicine
PROC: 0W993ZZ Drainage of Right Pleural Cavity, Percutaneous Approach (ICD-10-PCS; principal; 2018-05-22)
DX: J15.6 Pneumonia due to other Gram-negative bacteria (principal); J96.21 Acute and chronic respiratory failure with hypoxia; C77.0 Secondary and unspecified malignant neoplasm of lymph nodes of head, face and neck; J90 Pleural effusion, not elsewhere classified; C78.01 Secondary malignant neoplasm of right lung; K21.9 Gastro-esophageal reflux disease without esophagitis; Y95 Nosocomial condition; Z51.5 Encounter for palliative care; Z96.651 Presence of right artificial knee joint; Z96.1 Presence of intraocular lens; E78.00 Pure hypercholesterolemia, unspecified; Z15.01 Genetic susceptibility to malignant neoplasm of breast; E04.2 Nontoxic multinodular goiter; L40.9 Psoriasis, unspecified; E78.5 Hyperlipidemia, unspecified; F41.1 Generalized anxiety disorder; G47.00 Insomnia, unspecified; H40.9 Unspecified glaucoma; H54.7 Unspecified visual loss; Z98.82 Breast implant status; Z82.49 Family history of ischemic heart disease and other diseases of the circulatory system; Z85.828 Personal history of other malignant neoplasm of skin; Z87.01 Personal history of pneumonia (recurrent); Z87.440 Personal history of urinary (tract) infections; Z90.13 Acquired absence of bilateral breasts and nipples; Z92.21 Personal history of antineoplastic chemotherapy; Z85.3 Personal history of malignant neoplasm of breast; Z79.899 Other long term (current) drug therapy; Z88.5 Allergy status to narcotic agent; Z91.018 Allergy to other foods; Z17.0 Estrogen receptor positive status [ER+]; Z86.19 Personal history of other infectious and parasitic diseases; Z98.49 Cataract extraction status, unspecified eye
CPT/HCPCS: 36415; 71045; 71046; 71260; 76604; 80053; 80202; 82550; 82553; 82945; 83605; 83615; 83735; 83880; 84145; 84157; 84484; 85025; 85027; 85610; 85730; 87040; 87070; 87102; 87116; 87205; 87206; 87252; 87496; 87498; 87502; 87529; 87634; 87798; 89050; 93005; 94640; 94760; 96361; 96365; 96367; 96368; 99285

== ENCOUNTER 2018-05-23 15:10 | Inpatient (IN) | payer MEDICAID ==
[2018-05-23] MEDS ORDERED: ACETAMINOPHEN SUPPOSITORY 650 MG SUPP RECTAL PRN (16:30)
[2018-05-23] MEDS ORDERED: ATROPINE OPHTH SOLN 1% 5ML BTL SUBLINGUAL PRN (16:30)
[2018-05-23] MEDS ORDERED: LORazepam 2 MG/ML INJ IV PRN (16:30)
[2018-05-23] MEDS ORDERED: ONDANSETRON 4 MG/2 ML VIAL IVP PRN (16:30)
[2018-05-23] MEDS ORDERED: BISACODYL 10 MG SUPP RECTAL PRN (16:38)
[2018-05-23] MEDS ORDERED: MORPHINE SULFATE (100 MG/2 ML) 100 MG in SODIUM CHLORIDE 0.9% 100 ML IV SCH (17:00)
[2018-05-23] MEDS ORDERED: SCOPOLAMINE 1.5MG/72HR PATCH TRANSDERM SCH (17:00)
[2018-05-23 19:34] VITALS: BMI 21.4
== END 2018-05-24 07:17 | disposition expired | DRG 951 ==
LOC: 3NMEDONC 17:09
PROVIDERS: ADMIT Internal Medicine Geriatric Medicine; ATTEND Internal Medicine Geriatric Medicine
DX: Z51.5 Encounter for palliative care (principal); J96.01 Acute respiratory failure with hypoxia; J15.6 Pneumonia due to other Gram-negative bacteria; C78.00 Secondary malignant neoplasm of unspecified lung; L40.9 Psoriasis, unspecified; J45.909 Unspecified asthma, uncomplicated; E78.5 Hyperlipidemia, unspecified; K21.9 Gastro-esophageal reflux disease without esophagitis; F41.9 Anxiety disorder, unspecified; H40.9 Unspecified glaucoma; K64.9 Unspecified hemorrhoids; Z85.3 Personal history of malignant neoplasm of breast; Z85.828 Personal history of other malignant neoplasm of skin; Z87.01 Personal history of pneumonia (recurrent); Z87.440 Personal history of urinary (tract) infections; Z96.651 Presence of right artificial knee joint; Z98.41 Cataract extraction status, right eye; Z82.49 Family history of ischemic heart disease and other diseases of the circulatory system; Z84.1 Family history of disorders of kidney and ureter